=== PATIENT | male | born 1955 | race Caucasian/White ===

== ENCOUNTER → 2017-11-17 12:51 | Outpatient (REF) | payer OTHER, SELFPAY ==
[2017-11-17 20:24] LABS: ALT 21 U/L (12-78); AST 20 U/L (15-37); Alkaline Phosphatase 75 U/L (46-116); Anion Gap 9.9 mmol/L (3-11); BUN 18 mg/dL (7-18); Bilirubin, Total 0.5 mg/dL (0.2-1.0); CO2 29.1 mmol/L (21.0-32.0); CREATININE 0.76 mg/dL (0.70-1.30); Calcium 8.4 mg/dL (8.5-10.1); Chloride 104 mmol/L (98-107); Cholesterol 188 mg/dL (50-200); Glucose 88 mg/dL (70-100); HDL Cholesterol 66 mg/dL (40-60); LDL CHOLESTEROL 110 mg/dL (<100); Potassium 3.8 mmol/L (3.5-5.1); Sodium 143 mmol/L (136-145); Total Protein 6.4 g/dL (6.4-8.2); Triglyceride 121 mg/dL (30-150)
== END ==
LOC: NCHCN 12:51
PROVIDERS: PCP Internal Medicine; Visit Provider Internal Medicine
DX: I10 Essential (primary) hypertension (principal)
CPT/HCPCS: 80053; 80061; 83721

== ENCOUNTER 2020-10-06 16:46 | Outpatient (REF) | payer OTHER, SELFPAY ==
[2020-10-06 20:14] LABS: HCT 40.8 % (40.0-50.0); HGB 13.3 g/dL (13.5-17.5); MCH 32.5 pg (27.0-33.0); MCHC 32.6 % (32.0-36.0); MCV 99.8 fL (80-95); MPV 9.6 fL (8.0-11.0); Platelet Count 253 10^3/uL (130-400); RBC 4.09 10^6/uL (4.36-5.78); RDW-SD 47.6 fL; WBC 8.05 10^3/uL (4.4-10.8)
[2020-10-06 20:46] LABS: Hemoglobin A1C 5.7 % (<5.7)
[2020-10-06 20:50] LABS: Anion Gap 8.3 mmol/L (3-11); BUN 19 mg/dL (7-18); CO2 27.7 mmol/L (21.0-32.0); CREATININE 0.9 mg/dL (0.70-1.30); Calcium 8.4 mg/dL (8.5-10.1); Chloride 105 mmol/L (98-107); Glucose 154 mg/dL (74-106); Potassium 4.1 mmol/L (3.5-5.1); Sodium 141 mmol/L (136-145)
[2020-10-07 09:24] LABS: Albumin 3.8 g/dL (3.4-5.0)
[2020-10-07 09:27] LABS: Iron 74 ug/dL (65-175); Total Iron Binding Capacity 217 ug/dL (250-450); Transferrin Sat 34 % (20-55)
== END 2020-10-06 16:47 | disposition home or self-care (01) ==
LOC: NCHCN 16:46
PROVIDERS: PCP Internal Medicine; Visit Provider Internal Medicine
DX: Z01.818 Encounter for other preprocedural examination (principal); Z13.1 Encounter for screening for diabetes mellitus; I10 Essential (primary) hypertension; Z98.84 Bariatric surgery status
CPT/HCPCS: 80048; 85027; 82040; 83036; 83540; 83550

== ENCOUNTER 2021-10-05 17:10 | Outpatient (REF) | payer MEDICARE, SELFPAY ==
[2021-10-05 19:34] LABS: Abs Immature Grans 0.04 10^3/uL (0.0-0.06); Absolute Basophil Count 0.05 10^3/uL (0.0-0.2); Absolute Eosinophil Count 0.11 10^3/uL (0.0-0.7); Absolute Lymphocyte Count 1.58 10^3/uL (1.2-3.4); Absolute Neutrophil Count 5.34 10^3/uL (1.2-6.7); Basophils % 0.6; Eosinophils % 1.4; HGB 13.5 g/dL (13.5-17.5); Immature Grans % 0.5; Lymphocytes % 20.5; MCHC 33.8 % (32.0-36.0); MCV 98 fL (80-95); MPV 9.4 fL (8.0-11.0); Monocytes % 7.8; Neutrophils % 69.2; Platelet Count 240 10^3/uL (130-400); RBC 4.09 10^6/uL (4.36-5.78); RDW 13.3 % (11.8-14.1); RDW-SD 48.1 fL; WBC 7.72 10^3/uL (4.4-10.8)
[2021-10-05 19:39] LABS: Iron 68 ug/dL (65-175); Total Iron Binding Capacity 205 ug/dL (250-450); Transferrin Sat 33 % (20-55)
[2021-10-05 19:46] LABS: ALT 28 U/L (16-63); AST 26 U/L (15-37); Albumin 3.6 g/dL (3.4-5.0); Alkaline Phosphatase 75 U/L (46-116); Anion Gap 6.6 mmol/L (3-11); BUN 16 mg/dL (7-18); Bilirubin, Total 0.4 mg/dL (0.2-1.0); CO2 27.4 mmol/L (21.0-32.0); CREATININE 0.7 mg/dL (0.70-1.30); Calcium 8.2 mg/dL (8.5-10.1); Chloride 105 mmol/L (98-107); Glucose 106 mg/dL (74-106); Potassium 4.1 mmol/L (3.5-5.1); Sodium 139 mmol/L (136-145); Total Protein 5.6 g/dL (6.4-8.2)
[2021-10-05 19:51] LABS: Hemoglobin A1C 6.1 % (<5.7)
[2021-10-07 05:14] LABS: Vitamin D 25 Total 41.6 ng/mL (30-100)
== END 2021-10-05 17:11 | disposition home or self-care (01) ==
LOC: NCHCN 17:10
PROVIDERS: PCP Internal Medicine; Visit Provider Internal Medicine
DX: Z00.00 Encounter for general adult medical examination without abnormal findings (principal); Z13.1 Encounter for screening for diabetes mellitus; I10 Essential (primary) hypertension
CPT/HCPCS: 80053; 82306; 83036; 83540; 83550; 85025

== ENCOUNTER 2022-09-05 13:21 | Outpatient (REF) | payer MEDICARE, SELFPAY ==
[2022-09-05 16:32] LABS: ALT 31 U/L (16-63); AST 22 U/L (15-37); Albumin 3.6 g/dL (3.4-5.0); Alkaline Phosphatase 83 U/L (46-116); Anion Gap 5.5 mmol/L (3-11); BUN 20 mg/dL (7-18); Bilirubin, Total 0.6 mg/dL (0.2-1.0); CO2 30.5 mmol/L (21.0-32.0); CREATININE 0.7 mg/dL (0.70-1.30); Calcium 8.8 mg/dL (8.5-10.1); Calculated LDL 106 mg/dL (<100); Chloride 106 mmol/L (98-107); Cholesterol 186 mg/dL (<200); Estimated GFR 101.62 (mL/min/1.73m2); Glucose 128 mg/dL (74-106); HDL Cholesterol 73 mg/dL (40-60); Potassium 4.7 mmol/L (3.5-5.1); Sodium 142 mmol/L (136-145); Triglyceride 38 mg/dL (<150)
== END 2022-09-05 13:22 | disposition home or self-care (01) ==
LOC: NCHCN 13:21
PROVIDERS: PCP Internal Medicine; Visit Provider Internal Medicine
DX: E11.40 Type 2 diabetes mellitus with diabetic neuropathy, unspecified (principal); I87.2 Venous insufficiency (chronic) (peripheral); I10 Essential (primary) hypertension
CPT/HCPCS: 80053; 80061

== ENCOUNTER 2024-02-01 02:34 | Outpatient (RCR) | payer OTHER, MEDICARE, SELFPAY ==
[2024-01-10] MEDS: ERTAPENEM 1 GM in Normal Saline 50 ML IVPB (14:33)
[2024-01-10] MEDS: Normal Saline Flush 10 ML SYR IVP (14:34)
[2024-01-10 15:23] LABS: Absolute Basophil Count 0.07 10^3/uL (0.0-0.2); Absolute Lymphocyte Count 1.85 10^3/uL (1.2-3.4); Absolute Monocyte Count 0.65 10^3/uL (0.1-0.8); Absolute Neutrophil Count 6.44 10^3/uL (1.2-6.7); Basophils % 0.7 %; Eosinophils % 3.2 %; HCT 32.8 % (40.0-50.0); HGB 10.5 g/dL (13.5-17.5); Immature Grans % 1.1 %; Lymphocytes % 19.7 %; MCH 33.4 pg (27.0-33.0); MCV 105 fL (80-95); MPV 8.8 fL (8.0-11.0); Monocytes % 6.9 %; Neutrophils % 68.4 %; Platelet Count 411 10^3/uL (130-400); RBC 3.14 10^6/uL (4.36-5.78); RDW 13.8 % (11.8-14.1); RDW-SD 52.7 fL; WBC 9.41 10^3/uL (4.4-10.8)
[2024-01-10 15:40] LABS: ALT 19 U/L (16-63); AST 15 U/L (15-37); C-Reactive Protein 1.93 mg/dL (<or=0.5); CREATININE 0.7 mg/dL (0.70-1.30); Estimated GFR 100.37 (mL/min/1.73m2)
[2024-01-11] MEDS: Normal Saline Flush 10 ML SYR IVP (13:44)
[2024-01-11] MEDS: ERTAPENEM 1 GM in Normal Saline 50 ML IVPB (13:44)
[2024-01-12] MEDS: Normal Saline Flush 10 ML SYR IVP (13:51)
[2024-01-12] MEDS: ERTAPENEM 1 GM in Normal Saline 50 ML IVPB (13:51)
[2024-01-13] MEDS: ERTAPENEM 1 GM in Normal Saline 50 ML IVPB (14:06)
[2024-01-14] MEDS: ERTAPENEM 1 GM in Normal Saline 50 ML IVPB (14:03)
[2024-01-14] MEDS: Normal Saline Flush 10 ML SYR IVP (14:04)
[2024-01-15] MEDS: ERTAPENEM 1 GM in Normal Saline 50 ML IVPB (14:02)
[2024-01-15] MEDS: Normal Saline Flush 10 ML SYR IVP (14:03)
[2024-01-16] MEDS: ERTAPENEM 1 GM in Normal Saline 50 ML IVPB (13:43)
[2024-01-16] MEDS: Normal Saline Flush 10 ML SYR IVP (13:44)
[2024-01-17] MEDS: ERTAPENEM 1 GM in Normal Saline 50 ML IVPB (14:04)
[2024-01-17] MEDS: Normal Saline Flush 10 ML SYR IVP (14:05)
[2024-01-17 14:48] LABS: Abs Immature Grans 0.03 10^3/uL (0.0-0.06); Absolute Basophil Count 0.06 10^3/uL (0.0-0.2); Absolute Lymphocyte Count 1.52 10^3/uL (1.2-3.4); Absolute Monocyte Count 0.53 10^3/uL (0.1-0.8); Basophils % 0.7 %; Eosinophils % 3.6 %; HCT 32.3 % (40.0-50.0); HGB 10.3 g/dL (13.5-17.5); Immature Grans % 0.4 %; Lymphocytes % 18.4 %; MCH 33.2 pg (27.0-33.0); MCHC 31.9 % (32.0-36.0); MCV 104 fL (80-95); Monocytes % 6.4 %; Neutrophils % 70.5 %; Platelet Count 386 10^3/uL (130-400); RDW 13.8 % (11.8-14.1); RDW-SD 52.7 fL; WBC 8.24 10^3/uL (4.4-10.8)
[2024-01-17 15:10] LABS: ALT 20 U/L (16-63); AST 19 U/L (15-37); CREATININE 0.9 mg/dL (0.70-1.30); Estimated GFR 93.03 (mL/min/1.73m2)
[2024-01-18] MEDS: ERTAPENEM 1 GM in Normal Saline 50 ML IVPB (13:58)
[2024-01-18] MEDS: Normal Saline Flush 10 ML SYR IVP (13:59)
[2024-01-19] MEDS: ERTAPENEM 1 GM in Normal Saline 50 ML IVPB (14:06)
[2024-01-19] MEDS: Normal Saline Flush 10 ML SYR IVP (14:17)
[2024-01-20] MEDS: ERTAPENEM 1 GM in Normal Saline 50 ML IVPB (14:05)
[2024-01-20] MEDS: Normal Saline Flush 10 ML SYR IVP (14:06)
[2024-01-21] MEDS: Normal Saline Flush 10 ML SYR IVP (14:00)
[2024-01-21] MEDS: ERTAPENEM 1 GM in Normal Saline 50 ML IVPB (14:00)
[2024-01-22] MEDS: ERTAPENEM 1 GM in Normal Saline 50 ML IVPB (14:01)
[2024-01-22] MEDS: Normal Saline Flush 10 ML SYR IVP (14:02)
[2024-01-23] MEDS: Normal Saline Flush 10 ML SYR IVP (14:04)
[2024-01-23] MEDS: ERTAPENEM 1 GM in Normal Saline 50 ML IVPB (14:04)
[2024-01-24] MEDS: ERTAPENEM 1 GM in Normal Saline 50 ML IVPB (13:55)
[2024-01-24] MEDS: Normal Saline Flush 10 ML SYR IVP (13:55)
[2024-01-24 14:15] LABS: Abs Immature Grans 0.02 10^3/uL (0.0-0.06); Absolute Basophil Count 0.06 10^3/uL (0.0-0.2); Absolute Eosinophil Count 0.29 10^3/uL (0.0-0.7); Absolute Lymphocyte Count 2.21 10^3/uL (1.2-3.4); Absolute Monocyte Count 0.57 10^3/uL (0.1-0.8); Absolute Neutrophil Count 5.31 10^3/uL (1.2-6.7); Basophils % 0.7 %; Eosinophils % 3.4 %; HCT 37.3 % (40.0-50.0); HGB 11.9 g/dL (13.5-17.5); Immature Grans % 0.2 %; Lymphocytes % 26.1 %; MCH 33.1 pg (27.0-33.0); MCHC 31.9 % (32.0-36.0); MCV 104 fL (80-95); MPV 8.8 fL (8.0-11.0); Monocytes % 6.7 %; Neutrophils % 62.9 %; Platelet Count 348 10^3/uL (130-400); RBC 3.59 10^6/uL (4.36-5.78); RDW 13.6 % (11.8-14.1); WBC 8.46 10^3/uL (4.4-10.8)
[2024-01-24 14:29] LABS: ALT 22 U/L (16-63); AST 21 U/L (15-37); CREATININE 0.9 mg/dL (0.70-1.30); Estimated GFR 93.03 (mL/min/1.73m2)
[2024-01-24 14:31] LABS: C-Reactive Protein < 0.50 mg/dL (<or=0.5)
[2024-01-25] MEDS: ERTAPENEM 1 GM in Normal Saline 50 ML IVPB (14:00)
[2024-01-25] MEDS: Normal Saline Flush 10 ML SYR IVP (14:01)
[2024-01-26] MEDS: ERTAPENEM 1 GM in Normal Saline 50 ML IVPB (13:57)
[2024-01-26] MEDS: Normal Saline Flush 10 ML SYR IVP (13:58)
[2024-01-27] MEDS: ERTAPENEM 1 GM in Normal Saline 50 ML IVPB (13:59)
[2024-01-28] MEDS: ERTAPENEM 1 GM in Normal Saline 50 ML IVPB (14:25)
[2024-01-29] MEDS: ERTAPENEM 1 GM in Normal Saline 50 ML IVPB (13:01)
[2024-01-29] MEDS: Normal Saline Flush 10 ML SYR IVP (13:02)
[2024-01-30] MEDS: ERTAPENEM 1 GM in Normal Saline 50 ML IVPB (14:00)
[2024-01-30] MEDS: Normal Saline Flush 10 ML SYR IVP (14:00)
[2024-01-31] MEDS: Normal Saline Flush 10 ML SYR IVP (13:57)
[2024-01-31] MEDS: ERTAPENEM 1 GM in Normal Saline 50 ML IVPB (13:57)
[2024-01-31 14:33] LABS: Abs Immature Grans 0.02 10^3/uL (0.0-0.06); Absolute Basophil Count 0.05 10^3/uL (0.0-0.2); Absolute Eosinophil Count 0.28 10^3/uL (0.0-0.7); Absolute Lymphocyte Count 1.64 10^3/uL (1.2-3.4); Absolute Monocyte Count 0.45 10^3/uL (0.1-0.8); Absolute Neutrophil Count 5.53 10^3/uL (1.2-6.7); Basophils % 0.6 %; Eosinophils % 3.5 %; HCT 37.4 % (40.0-50.0); HGB 11.9 g/dL (13.5-17.5); Immature Grans % 0.3 %; Lymphocytes % 20.6 %; MCH 32.8 pg (27.0-33.0); MCHC 31.8 % (32.0-36.0); MCV 103 fL (80-95); MPV 9.3 fL (8.0-11.0); Monocytes % 5.6 %; Neutrophils % 69.4 %; Platelet Count 279 10^3/uL (130-400); RBC 3.63 10^6/uL (4.36-5.78); RDW 13.4 % (11.8-14.1); WBC 7.97 10^3/uL (4.4-10.8)
[2024-01-31 14:59] LABS: ALT 21 U/L (16-63); AST 19 U/L (15-37); CREATININE 0.9 mg/dL (0.70-1.30); Estimated GFR 93.03 (mL/min/1.73m2)
[2024-01-31 15:09] LABS: C-Reactive Protein < 0.50 mg/dL (<or=0.5)
[2024-02-01] MEDS: ERTAPENEM 1 GM in Normal Saline 50 ML IVPB (12:50)
[2024-02-01] MEDS: Normal Saline Flush 10 ML SYR IVP (12:50)
== END 2024-02-01 23:59 | disposition home or self-care (01) ==
LOC: INF 02:34
PROVIDERS: Student in an Organized Health Care Education/Training Program; PCP Family Medicine; Visit Provider Family Medicine
DX: T84.50XD Infection and inflammatory reaction due to unspecified internal joint prosthesis, subsequent encounter (principal); Z45.2 Encounter for adjustment and management of vascular access device
CPT/HCPCS: 36591; 36592; 96365; 82565; 84450; 84460; 85025; 86140; J1335

== ENCOUNTER 2024-02-15 01:35 | Outpatient (RCR) | payer OTHER, MEDICARE, SELFPAY ==
[2024-02-02] MEDS: ERTAPENEM 1 GM in Normal Saline 50 ML IVPB (14:23)
[2024-02-02] MEDS: Normal Saline Flush 10 ML SYR IVP (14:24)
[2024-02-03] MEDS: ERTAPENEM 1 GM in Normal Saline 50 ML IVPB (13:53)
[2024-02-03 13:54] VITALS: BP 114/65; PULSE 66; RESP 16; TEMP 36.7; O2SAT 97
[2024-02-03] MEDS: Normal Saline Flush 10 ML SYR IVP (13:54)
[2024-02-04] MEDS: ERTAPENEM 1 GM in Normal Saline 50 ML IVPB (13:59)
[2024-02-04] MEDS: Normal Saline Flush 10 ML SYR IVP (14:01)
[2024-02-05] MEDS: Normal Saline Flush 10 ML SYR IVP (14:14)
[2024-02-05] MEDS: ERTAPENEM 1 GM in Normal Saline 50 ML IVPB (14:14)
[2024-02-06] MEDS: ERTAPENEM 1 GM in Normal Saline 50 ML IVPB (14:07)
[2024-02-06] MEDS: Normal Saline Flush 10 ML SYR IVP (14:14)
[2024-02-07] MEDS: ERTAPENEM 1 GM in Normal Saline 50 ML IVPB (13:55)
[2024-02-07] MEDS: Normal Saline Flush 10 ML SYR IVP (13:59)
[2024-02-07 14:25] LABS: Abs Immature Grans 0.02 10^3/uL (0.0-0.06); Absolute Basophil Count 0.06 10^3/uL (0.0-0.2); Absolute Eosinophil Count 0.26 10^3/uL (0.0-0.7); Absolute Lymphocyte Count 1.77 10^3/uL (1.2-3.4); Absolute Monocyte Count 0.52 10^3/uL (0.1-0.8); Absolute Neutrophil Count 4.21 10^3/uL (1.2-6.7); Basophils % 0.9 %; Eosinophils % 3.8 %; HCT 38.8 % (40.0-50.0); HGB 12.6 g/dL (13.5-17.5); Immature Grans % 0.3 %; Lymphocytes % 25.9 %; MCH 33.4 pg (27.0-33.0); MCHC 32.5 % (32.0-36.0); MCV 103 fL (80-95); Monocytes % 7.6 %; Neutrophils % 61.5 %; Platelet Count 281 10^3/uL (130-400); RBC 3.77 10^6/uL (4.36-5.78); RDW 13.6 % (11.8-14.1); RDW-SD 51.9 fL; WBC 6.84 10^3/uL (4.4-10.8)
[2024-02-07 14:42] LABS: ALT 21 U/L (16-63); AST 17 U/L (15-37); C-Reactive Protein 0.73 mg/dL (<or=0.5); Estimated GFR 81.98 (mL/min/1.73m2)
[2024-02-08] MEDS: Normal Saline Flush 10 ML SYR IVP (13:54)
[2024-02-08] MEDS: ERTAPENEM 1 GM in Normal Saline 50 ML IVPB (13:54)
[2024-02-09] MEDS: ERTAPENEM 1 GM in Normal Saline 50 ML IVPB (13:56)
[2024-02-09] MEDS: Normal Saline Flush 10 ML SYR IVP (13:57)
[2024-02-10] MEDS: ERTAPENEM 1 GM in Normal Saline 50 ML IVPB (13:28)
[2024-02-11] MEDS: ERTAPENEM 1 GM in Normal Saline 50 ML IVPB (14:13)
[2024-02-12] MEDS: ERTAPENEM 1 GM in Normal Saline 50 ML IVPB (13:37)
[2024-02-12] MEDS: Normal Saline Flush 10 ML SYR IVP (13:37)
[2024-02-13] MEDS: ERTAPENEM 1 GM in Normal Saline 50 ML IVPB (13:58)
[2024-02-13] MEDS: Normal Saline Flush 10 ML SYR IVP (13:59)
[2024-02-14] MEDS: ERTAPENEM 1 GM in Normal Saline 50 ML IVPB (13:58)
[2024-02-14] MEDS: Normal Saline Flush 10 ML SYR IVP (13:59)
[2024-02-14 14:29] LABS: Abs Immature Grans 0.02 10^3/uL (0.0-0.06); Absolute Basophil Count 0.06 10^3/uL (0.0-0.2); Absolute Eosinophil Count 0.24 10^3/uL (0.0-0.7); Absolute Lymphocyte Count 1.81 10^3/uL (1.2-3.4); Absolute Monocyte Count 0.47 10^3/uL (0.1-0.8); Eosinophils % 3.8 %; HCT 37.3 % (40.0-50.0); HGB 12.2 g/dL (13.5-17.5); Immature Grans % 0.3 %; Lymphocytes % 28.7 %; MCH 33.9 pg (27.0-33.0); MCHC 32.7 % (32.0-36.0); MCV 104 fL (80-95); MPV 9.1 fL (8.0-11.0); Monocytes % 7.5 %; Neutrophils % 58.7 %; Platelet Count 255 10^3/uL (130-400); RDW 13.3 % (11.8-14.1); RDW-SD 51.4 fL
[2024-02-14 14:40] LABS: ALT 22 U/L (16-63); AST 18 U/L (15-37); C-Reactive Protein 0.68 mg/dL (<or=0.5); CREATININE 0.9 mg/dL (0.70-1.30); Estimated GFR 93.03 (mL/min/1.73m2)
[2024-02-15] MEDS: ERTAPENEM 1 GM in Normal Saline 50 ML IVPB (13:49)
[2024-02-15] MEDS: Bacitracin 1 PACKET (14:25)
[2024-02-15] MEDS: Normal Saline Flush 10 ML SYR IVP (14:29)
== END 2024-03-02 23:59 | disposition home or self-care (01) ==
LOC: INF 01:35
PROVIDERS: Student in an Organized Health Care Education/Training Program; PCP Family Medicine; Visit Provider Family Medicine
DX: T84.51XD Infection and inflammatory reaction due to internal right hip prosthesis, subsequent encounter (principal)
CPT/HCPCS: 36592; 96365; 82565; 84450; 84460; 85025; 86140; J1335

== ENCOUNTER 2024-02-19 20:12 | Outpatient (REF) | payer OTHER, SELFPAY ==
[2024-02-19 17:13] LABS: Creatine Kinase 49 U/L (39-308)
== END 2024-02-19 20:13 | disposition home or self-care (01) ==
LOC: NCHCN 20:12
PROVIDERS: PCP Family Medicine; Visit Provider Family Medicine
DX: M79.18 Myalgia, other site (principal)
CPT/HCPCS: 82550

== ENCOUNTER 2024-03-18 09:02 | Outpatient (REF) | payer OTHER, MEDICARE, SELFPAY ==
[2024-03-18 15:02] LABS: Abs Immature Grans 0.01 10^3/uL (0.0-0.06); Absolute Basophil Count 0.06 10^3/uL (0.0-0.2); Absolute Eosinophil Count 0.16 10^3/uL (0.0-0.7); Absolute Lymphocyte Count 2.01 10^3/uL (1.2-3.4); Absolute Monocyte Count 0.58 10^3/uL (0.1-0.8); Absolute Neutrophil Count 3.67 10^3/uL (1.2-6.7); Basophils % 0.9 %; Eosinophils % 2.5 %; HCT 43.9 % (40.0-50.0); HGB 14.5 g/dL (13.5-17.5); Immature Grans % 0.2 %; MCH 33.6 pg (27.0-33.0); MCV 102 fL (80-95); Monocytes % 8.9 %; Neutrophils % 56.5 %; RBC 4.32 10^6/uL (4.36-5.78); RDW 13.2 % (11.8-14.1); RDW-SD 50.5 fL; WBC 6.49 10^3/uL (4.4-10.8)
[2024-03-19 18:05] LABS: CRP, High Sensitivity 5.92 mg/L (See Note)
== END 2024-03-18 09:03 | disposition home or self-care (01) ==
LOC: NCHCN 09:02
PROVIDERS: PCP Family Medicine; Visit Provider Family Medicine
DX: Z22.322 Carrier or suspected carrier of Methicillin resistant Staphylococcus aureus (principal)
CPT/HCPCS: 82550; 82552; 86141; 85025

== ENCOUNTER 2024-05-30 13:15 | Outpatient (CLI) | payer OTHER, SELFPAY ==
[2024-05-30 11:48] LABS: HCT 44.7 % (40.0-50.0); HGB 14.7 g/dL (13.5-17.5); MCH 33.2 pg (27.0-33.0); MCHC 32.9 % (32.0-36.0); MCV 101 fL (80-95); MPV 9.1 fL (8.0-11.0); Platelet Count 261 10^3/uL (130-400); RBC 4.43 10^6/uL (4.36-5.78); RDW 13.2 % (11.8-14.1); RDW-SD 49.8 fL; WBC 6.46 10^3/uL (4.4-10.8)
[2024-05-30 12:22] LABS: ALT 23 U/L (16-63); AST 17 U/L (15-37); Albumin 3.8 g/dL (3.4-5.0); Alkaline Phosphatase 124 U/L (46-116); Anion Gap 9.2 mmol/L (3-11); BUN 24 mg/dL (7-18); CO2 27.8 mmol/L (21.0-32.0); Calcium 8.5 mg/dL (8.5-10.1); Chloride 104 mmol/L (98-107); Estimated GFR 81.98 (mL/min/1.73m2); Glucose 289 mg/dL (74-106); Potassium 4.5 mmol/L (3.5-5.1); Sodium 141 mmol/L (136-145); Total Protein 6.8 g/dL (6.4-8.2)
[2024-05-30 12:32] LABS: C-Reactive Protein < 0.50 mg/dL (<or=0.5)
[2024-05-30 12:38] LABS: ESR 2 mm/hr (0-20)
== END 2024-05-30 13:16 | disposition home or self-care (01) ==
LOC: LBO 13:17
PROVIDERS: PCP Family Medicine; Visit Provider Family Medicine
DX: Z22.322 Carrier or suspected carrier of Methicillin resistant Staphylococcus aureus (principal)
CPT/HCPCS: 36415; 80053; 85027; 85652; 86140

== ENCOUNTER 2024-10-15 16:50 | Outpatient (REF) | payer MEDICARE, SELFPAY ==
[2024-10-15 16:23] LABS: HCT 41.1 % (40.0-50.0); HGB 13.6 g/dL (13.5-17.5); MCH 34.0 pg (27.0-33.0); MCHC 33.1 % (32.0-36.0); MCV 103 fL (80-95); MPV 9.3 fL (8.0-11.0); Platelet Count 245 10^3/uL (130-400); RBC 4.00 10^6/uL (4.36-5.78); RDW 14.2 % (11.8-14.1); RDW-SD 54.1 fL; WBC 5.69 10^3/uL (4.4-10.8)
[2024-10-15 16:52] LABS: ALT 25 U/L (16-63); AST 21 U/L (15-37); Albumin 3.8 g/dL (3.4-5.0); Alkaline Phosphatase 89 U/L (46-116); Anion Gap 7.9 mmol/L (3-11); BUN 19 mg/dL (7-18); Bilirubin, Total 0.5 mg/dL (0.2-1.0); CO2 28.1 mmol/L (21.0-32.0); Calcium 8.8 mg/dL (8.5-10.1); Chloride 104 mmol/L (98-107); Estimated GFR 99.74 (mL/min/1.73m2); Glucose 132 mg/dL (74-106); Potassium 4.8 mmol/L (3.5-5.1); Sodium 140 mmol/L (136-145); Total Protein 6.3 g/dL (6.4-8.2)
== END 2024-10-15 16:51 | disposition home or self-care (01) ==
LOC: NCHCN 16:50
PROVIDERS: PCP Family Medicine; Visit Provider Family Medicine
DX: Z01.818 Encounter for other preprocedural examination (principal)
CPT/HCPCS: 80053; 85027

== ENCOUNTER 2025-02-07 12:53 | Inpatient (IN) | payer MEDICARE, SELFPAY ==
[2025-02-07] VITALS (7 sets, daily range): BP systolic 120–147; BP diastolic 62–92; PULSE 54–90; RESP 14–22; TEMP 36.7; O2SAT 94–98
--- NOTE | 2025-02-07 13:15 | DI.CT_ITS ---
Exam(s) CT HEAD WO EXAM: CT HEAD WO CLINICAL HISTORY: fall, [place]. TECHNIQUE: Imaging Protocol: Axial computed tomography images with coronal and sagittal reformatted images were created and reviewed COMPARISON: No exams were available for comparison FINDINGS: Ventricles and Extra axial spaces: Normal in size and morphology for the patient's age. Hemorrhage: None. Cerebral parenchyma: There is a normal bolivar-white matter differentiation. There is no evidence of an acute territorial infarct. Midline shift: None. Brainstem/Cerebellum: Normal. Calvarium: Normal. Visualized Paranasal sinuses/Mastoids: Clear. Soft Tissues: Unremarkable. IMPRESSION: No acute intracranial process. RADIATION DOSE DELIVERED: 915.05mGy.cm Total DLP DATA REPOSITORY: All CT scans at this facility are submitted to the National Radiology Data Registry (NRDR) Dose Index Registry (DIR) with the [employer] (ACR). RADIATION OPTIMIZATION: All CT scans at this facility use at least one of these dose optimization techniques: automated exposure control; mA and/or kV adjustment per patient size (includes targeted exams where dose is matched to clinical indication); or iterative reconstruction.
--- NOTE | 2025-02-07 13:15 | DI.RAD_ITS ---
Exam(s) XR KNEE RT 3V AP,LAT,MIRIAN XR TIB/FIB RT EXAM: XR KNEE RT 3V AP,LAT,MIRIAN and XR tib/fib RT CLINICAL HISTORY: knee pain post fall. TECHNIQUE: 2D digital imaging was performed of the right tibia/fibula and knee. Six views obtained. AP, lateral and PA tunnel views were obtained. COMPARISON: CR RIGHT FEMUR from 08/06/2012 CR LEFT HIP COMPLETE from 01/23/2014 CR BILATERAL HIPS ADULT from 09/30/2015 FINDINGS: BONES: No acute fracture is present. No bony destructive lesion is seen. There is an enthesophyte at the superior patella. JOINTS: The knee is normally aligned. No joint effusion is seen. SOFT TISSUE: Normal. IMPRESSION: There is no acute fracture or dislocation in the right knee or right leg. DATA REPOSITORY: RADIATION DOSE DELIVERED:
--- NOTE | 2025-02-07 13:15 | DI.CT_ITS ---
Exam(s) CT ABDOMEN PELVIS W EXAM: CT ABDOMEN PELVIS W CLINICAL HISTORY: abdominal and back pain. TECHNIQUE: Imaging Protocol: Axial computed tomography images with coronal and sagittal reformatted images were created and reviewed CONTRAST MATERIAL: Intravenous: Omnipaque-350 100cc Oral: None COMPARISON: CT CT LUMBAR SPINE RECONS from 02/07/2025 FINDINGS: VISUALIZED LUNG BASES: Mild increased markings in the right lung base posterior basal segment. No confluent infiltrates in the lung bases x and there are no pleural effusions. ABDOMEN: There is no ascites. GI: There is evidence of prior bariatric surgery and cholecystectomy. As there was no oral contrast administered it is not possible to determine if there is abnormal fistulous communication to the [place] vie[place] excluded stomach (which is not dilated). The pre colic Kayli limb is not dilated and there is no evidence of obvious abnormality at the enteroenterostomy nor more evidence of obvious more distal small bowel obstruction. There is no free air. No evidence of abscess. LIVER: There is mild prominence of intrahepatic ducts in the left lobe and aero bili a within these ducts. There are no focal hepatic lesions evident. GALLBLADDER/BILIARY: Gallbladder is surgically absent. CBD diameter is normal. PANCREAS: No evidence of pancreatic mass nor dilatation of the pancreatic duct. SPLEEN: Spleen is not enlarged. No obvious intrasplenic lesions. Splenic and portal veins are patent. ADRENALS: There are no significant adrenal masses. KIDNEYS:There is a small sub cm cyst in left kidney. No solid renal masses. No calculi. No hydronephrosis nor hydroureter.. ABDOMINAL AORTA: Abdominal aorta is not enlarged. LYMPH NODES:There are few slightly prominent Zita aortic lymph nodes. No large mesenteric masses. ABDOMINAL WALL: Small fat only containing umbilical hernia. No inguinal hernias evident. No port site hernias and no abnormal subcutaneous fluid collections. PELVIS: GI: Appendix is not seen and may be surgically absent.Sigmoid is redundant but no evidence of significant sigmoid diverticular disease nor diverticulosis elsewhere in the colon LYMPH NODES: There is no intrapelvic nor inguinal adenopathy. REPRODUCTIVE: Prostate size normal. URINARY BLADDER: No obvious findings although somewhat obscured by beam hardening artifact from bilateral hip prostheses. OSSEOUS: Bilateral hip prostheses. No fractures. Multilevel chronic degenerative disc disease in the lumbar spine. No listhesis. No significant osseous lesions evident. IMPRESSION: 1. There is evidence of prior bariatric surgery and cholecystectomy. There is no evidence of obvious bowel obstruction, free air, nor abscess. No ascites. 2. There is some air seen within intrahepatic ducts in this patient has had prior cholecystectomy. Correlation with any prior history of ERCP or other biliary instrumentation is recommended. The CBD is not dilated. 3. There are few slightly prominent para-aortic lymph nodes, these measuring less than 1 cm. 4. Bilateral hip prostheses noted. Report called by myself to ER provider 02/07/2025 at 3:20 p.m. RADIATION DOSE DELIVERED: 1,582.23mGy.cm Total DLP DATA REPOSITORY: All CT scans at this facility are submitted to the National Radiology Data Registry (NRDR) Dose Index Registry (DIR) with the [employer] (ACR). RADIATION OPTIMIZATION: All CT scans at this facility use at least one of these dose optimization techniques: automated exposure control; mA and/or kV adjustment per patient size (includes targeted exams where dose is matched to clinical indication); or iterative reconstruction.
--- NOTE | 2025-02-07 13:29 | DI.CT_ITS ---
Exam(s) CT LUMBAR SPINE RECONS EXAM: CT LUMBAR SPINE RECONS CLINICAL HISTORY: back pain. TECHNIQUE: Imaging Protocol: Axial computed tomography images with coronal and sagittal reformatted images were created and reviewed COMPARISON: CT CT ABDOMEN PELVIS W from 02/07/2025 FINDINGS: Bones: There is multilevel chronic degenerative disc disease and there is partial fusion of the L3, L4, and L5 vertebral bodies. There are also multilevel bridging syndesmophytes but no evidence of ankylosis of the sacroiliac joints.On the right side of L2-3 level there is lucency through the mid aspect of the lateral right syndesmophyte which may be significant such as fracture. The left syndesmophyte at this level appears intact. There is mild height loss of L1 vertebral body which may be a subtle compression fracture, age indeterminate. There are no distinct fracture lines evident in this vertebral body. No evidence of listhesis. There is no evidence of facet joint malalignment. L5-S1: Chronic disc space narrowing. Central posterior disc protrusion which extends posteriorly 6 mm and is 2 cm wide. This mildly compresses the thecal sac at this level. There is also bilateral vertical foraminal stenosis at this level related to advanced disc height loss. PARASPINAL SOFT TISSUES: Visualized paraspinal tissues appear unremarkable. Visualized sacrum appears intact with no evidence of sacral fracture and the sacroiliac joints appear age-appropriate. No ankylosis. There is partial sacralization of the L5 segment. IMPRESSION: 1. Chronic multilevel degenerative disc disease and partial multilevel vertebral fusions. 2. Mild height loss of L1 vertebral body; less than 10 percent height loss, age indeterminate.) 3. There is a possible fracture line through a right sided syndesmosis at the L2-3 level, this of questionable significance. 4. There is multilevel chronic degenerative disc disease. Most prominent narrowing is at L5-S1 level where there is also a central disc protrusion as described above which indents the anterior thecal sac. Central canal dimensions at this level are lower normal but there is significant bilateral vertical foraminal stenosis at this level. 5. There is mild central canal stenosis at L2-3 level evident. 6. If pain persists then would recommend MRI for added sensitivity and specificity. Report called by myself to ER provider 02/07/2025 at 3:44 p.m. RADIATION DOSE DELIVERED: 1,582.23mGy.cm Total DLP DATA REPOSITORY: All CT scans at this facility are submitted to the National Radiology Data Registry (NRDR) Dose Index Registry (DIR) with the [employer] (ACR). RADIATION OPTIMIZATION: All CT scans at this facility use at least one of these dose optimization techniques: automated exposure control; mA and/or kV adjustment per patient size (includes targeted exams where dose is matched to clinical indication); or iterative reconstruction.
[2025-02-07 13:41] LABS: Abs Immature Grans 0.08 10^3/uL (0.0-0.06); HCT 46.3 % (40.0-50.0); HGB 15.2 g/dL (13.5-17.5); Immature Grans % 1.0 %; MCH 33.4 pg (27.0-33.0); MCHC 32.8 % (32.0-36.0); MCV 102 fL (80-95); MPV 9.0 fL (8.0-11.0); Platelet Count 263 10^3/uL (130-400); RBC 4.55 10^6/uL (4.36-5.78); RDW 12.9 % (11.8-14.1); RDW-SD 48.9 fL; WBC 8.21 10^3/uL (4.4-10.8)
[2025-02-07] MEDS: ACETAMINOPHEN 500 MG/50 ML BAG 200 MG IVPB (13:41)
[2025-02-07] MEDS: MORPHine 10 MG/ML VIAL 2 MG IVP ×5 (13:41→21:40)
[2025-02-07] MEDS: MORPHine 4 MG/ML SYR IVP ×2 (14:01→15:41)
[2025-02-07 14:11] LABS: ALT 35 U/L (16-63); AST 38 U/L (15-37); Albumin 4.2 g/dL (3.4-5.0); Alkaline Phosphatase 119 U/L (46-116); Anion Gap 8.9 mmol/L (3-11); BUN 17 mg/dL (7-18); Bilirubin, Total 0.5 mg/dL (0.2-1.0); CO2 28.1 mmol/L (21.0-32.0); Calcium 8.6 mg/dL (8.5-10.1); Chloride 103 mmol/L (98-107); Glucose 128 mg/dL (74-106); Lipase 35 U/L (<78); Potassium 3.8 mmol/L (3.5-5.1); Sodium 140 mmol/L (136-145); Total Protein 7.6 g/dL (6.4-8.2)
[2025-02-07] MEDS: Omnipaque 350 MG/ML 500 ML BTL-Imaging package IJ (14:37)
[2025-02-07] MEDS: Normal Saline - Diluent 50 ML VIAL IJ (14:38)
[2025-02-07] MEDS: Normal Saline Flush 10 ML SYR IVP (14:40)
--- NOTE | 2025-02-07 15:44 | W.ED.GENAD ---
Discharge Plan Discharge Details Chief Complaint: Fall/Non TraumaCriteria Primary Care Provider: Jennifer Newman ED Provider: Carol Costello Home Meds and New Rx's Prescriptions: No Action cyclobenzaprine 10 mg tablet 10 mg PO HS ferrous gluconate 256 mg (28 mg iron) tablet 256 mg PO DAILY gabapentin 800 mg tablet 1,600 mg PO TID Patient Comments: Pt states he takes 1600 mg three times daily - Ellie Sanford RN 02/07/25 omeprazole 40 mg capsule,delayed release(DR/EC) 40 mg PO DAILY senna 8.6 mg capsule 17.2 mg PO BID tadalafil 10 mg tablet 10 mg PO DAILY PRN Rx Instructions: administer approximately 30min before sexual activity; do not use more than 1 dose per 24hrs tramadol 50 mg tablet 50 mg PO Q6H PRN ascorbic acid (vitamin C) 1,000 mg tablet 2 g PO TID cholecalciferol (vitamin D3) 10 mcg (400 unit) capsule 10 mcg PO DAILY ibuprofen 800 MG tablet 800 mg PO Q8H PRNQty: 20 0RF oxycodone 5 MG/5 ML solution 5 mg PO Q4H PRNQty: 100 0RF oxycodone 5 MG tablet 1 tab PO ONCE PRN ramelteon 8 mg tablet 8 mg PO QHS HPI General Date/Time Provider Initiated Documentation: 02/07/25 13:11. HPI Narrative: 69-year-old male with history of peripheral neuropathy bariatric surgery hypertension hypercholesterolemia presents after a mechanical fall. He states his right knee gave out and he fell into the pool and initially had some ringing to his right ear, he denies any loss of consciousness complaining of some abdominal pain, back pain, knee and díaz pain. He was unable to ambulate after the event occurred. Denies any strength or sensation change Related Data Home Medications Medication Instructions Recorded Confirmed ibuprofen 800 mg tablet 800 mg PO Q8H PRN #20 tabs 08/06/12 02/07/25 oxycodone 5 mg/5 mL oral solution 5 mg (5 mL) PO Q4H PRN #100 mL 08/06/12 02/07/25 oxycodone 5 mg tablet 1 tab PO ONCE PRN 11/02/15 02/07/25 ascorbic acid (vitamin C) 1,000 mg 2 g PO TID 01/24/24 02/07/25 tablet cholecalciferol (vitamin D3) 10 10 mcg PO DAILY 01/24/24 02/07/25 mcg (400 unit) capsule cyclobenzaprine 10 mg tablet 10 mg PO HS 01/24/24 02/07/25 ferrous gluconate 256 mg (28 mg 256 mg PO DAILY 01/24/24 02/07/25 iron) tablet gabapentin 800 mg tablet 1,600 mg PO TID 01/24/24 02/07/25 omeprazole 40 mg capsule,delayed 40 mg PO DAILY 01/24/24 02/07/25 release sennosides 8.6 mg capsule (senna) 17.2 mg PO BID 01/24/24 02/07/25 tadalafil 10 mg tablet 10 mg PO DAILY PRN 01/24/24 02/07/25 tramadol 50 mg tablet 50 mg PO Q6H PRN 01/24/24 02/07/25 ramelteon 8 mg tablet 8 mg PO QHS 02/07/25 02/07/25 Previous Rx's Medication Instructions Recorded ibuprofen 800 mg tablet 800 mg PO Q8H PRN #20 tabs 08/06/12 oxycodone 5 mg/5 mL oral solution 5 mg (5 mL) PO Q4H PRN #100 mL 08/06/12 Allergies Allergy/AdvReac Type Severity Reaction Status Date / Time Penicillins Allergy Unknown Unverified 02/07/25 13:33 beta blockers Allergy Unknown Uncoded 02/07/25 13:33 raw cheese Allergy Unknown Uncoded 02/07/25 13:33 General Stated Complaint: Fall/Non TraumaCriteria JORGE: 3 Exam Narrative Exam Narrative: Alert and oriented 69-year-old male no acute discomforts, neurovascularly intact, no abdominal tenderness no rebound or guarding, lumbar spine tenderness, strength and sensation intact distally, laceration noted to right tib-fib with tenderness and swelling, likely hematoma, tenderness to right knee no cervical spine tenderness GCS 15 pupils equal round reactive to light and accommodation following all basic commands Course Vital Signs Vital signs: Vital Signs Temperature 36.7 C 02/07/25 12:55 Pulse 54 L 02/07/25 12:55 Respiratory Rate 16 02/07/25 12:55 Blood Pressure 131/85 02/07/25 12:55 Pulse Oximetry 98 02/07/25 12:55 Temperature 36.7 C 02/07/25 12:55 Temperature Source Temporal Artery Scan 02/07/25 12:55 Pulse 77 02/07/25 15:02 Respiratory Rate 16 02/07/25 15:02 Respiratory Effort Normal, Non-Labored 02/07/25 14:14 Respiratory Depth Normal 02/07/25 14:14 Respiratory Pattern Normal 02/07/25 14:14 Blood Pressure 147/92 H 02/07/25 15:02 Blood Pressure Mean 110 02/07/25 15:02 Blood Pressure Position Supine 02/07/25 12:55 Pulse Oximetry 97 02/07/25 15:02 Oxygen Delivery Method Room Air 02/07/25 15:02 Oxygen Flow Rate 0 02/07/25 15:02 Pain Level 9 02/07/25 14:01 Lab/Test Results Lab/Test Results: Laboratory Tests Range/Units 02/07/25 02/07/25 13:28 13:48 WBC (4.4-10.8) 10^3/uL 8.21 RBC (4.36-5.78) 10^6/uL 4.55 Hgb (13.5-17.5) g/dL 15.2 Hct (40.0-50.0) % 46.3 MCV (80-95) fL 102 H MCH (27.0-33.0) pg 33.4 H MCHC (32.0-36.0) % 32.8 RDW (11.8-14.1) % 12.9 Plt Count (130-400) 10^3/uL 263 MPV (8.0-11.0) fL 9.0 Immature Gran % % 1.0 Neutrophils % % 78.0 Lymphocytes % % 13.0 Monocytes % % 6.1 Eosinophils % % 1.5 Basophils % % 0.4 Nucleated RBC % (0.0-0.3) % 0.0 Absolute Neutrophils (1.2-6.7) 10^3/uL 6.41 Absolute Lymphocytes (1.2-3.4) 10^3/uL 1.07 L Absolute Monocytes (0.1-0.8) 10^3/uL 0.50 Absolute Eosinophils (0.0-0.7) 10^3/uL 0.12 Absolute Basophils (0.0-0.2) 10^3/uL 0.03 Sodium (136-145) mmol/L 140 Potassium (3.5-5.1) mmol/L 3.8 Chloride (98-107) mmol/L 103 Carbon Dioxide (21.0-32.0) mmol/L 28.1 Anion Gap (3-11) mmol/L 8.9 BUN (7-18) mg/dL 17 Creatinine (0.70-1.30) mg/dL 0.7 Est GFR (CKD-EPI 2020) (mL/min/1.73m2) 99.74 Glucose (74-106) mg/dL 128 H Calcium (8.5-10.1) mg/dL 8.6 Total Bilirubin (0.2-1.0) mg/dL 0.5 AST (15-37) U/L 38 H ALT (16-63) U/L 35 Alkaline Phosphatase (46-116) U/L 119 H Total Protein (6.4-8.2) g/dL 7.6 Albumin (3.4-5.0) g/dL 4.2 Lipase (<78) U/L 35 ABO/Rh AB Negative Antibody Screen NEGATIVE Medical Decision Making Results: CBC, CMP, do not show evidence of significant acute abnormality CT head abdomen and pelvis and right lower extremity x-rays do not show evidence of acute abnormality, patient is a possible fracture through L2-L3 syndesmosis, this was discussed with radiologist, Dr. Spicer Assessment and plan: Patient had mechanical fall complaining of head, back, and leg pain. CT head does not show acute abnormality, patient states tetanus immunization is up-to-date. He does have a possible fracture through L2-L3 syndesmosis. We will call neurosurgery regarding this finding. Patient has required multiple doses of pain medication throughout this visit. Prior to discharge home he will need an ambulatory trial as he has been in quite a bit of pain did receive some IV Tylenol initially upon arrival. At this time he is pending neurosurgery consultation regarding possible fracture through L2-L3 and if cleared, ambulatory trial for possible discharge home.. 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 (Acute) Hypertension (Chronic) Erectile dysfunction (Acute) Obesity (Chronic) Hypercholesterolemia (Acute) Medical History (Updated 01/24/24 @ 10:29 by Helen Kapoor RN) History of fracture of right hip History of pancreatitis Surgical History (Updated 01/24/24 @ 10:29 by Helen Kapoor RN) History of arthroplasty of finger of left hand History of vasectomy History of carpal tunnel release Hx of cholecystectomy History of bariatric surgery Social History Smoking/Tobacco Use Status: Never Smoking risk assessment performed?: Yes Alcohol Intake: current Alcohol Intake frequency: holidays/special occasions only Drug use: Never Substance use type: does not use Do you feel safe at home: Yes Do you feel safe in your relationship?: Yes
--- NOTE | 2025-02-07 22:37 | W.PM.HP.N ---
Date of service: 02/07/25 Time of Service: 22:38 Assessment and Plan Assessment and plan (1) Acute back pain: Status: Acute Assessment and plan: Reviewing the notes from the ED the recommendation from trauma neurosurgery at [facility] is to get MRI thoracic and lumbar spine without contrast. If the MRI is within normal limits check a x-ray for flexion and extension. After these images are done to reconsult neurosurgery. The patient is not narcotic naïve so I will give him Dilaudid for pain control. Dorsal softeners as needed. I have placed the orders for the MRIs. (2) Type 2 diabetes mellitus: Status: Acute Assessment and plan: Patient is controlled with diet and exercise is not on any oral or subcu diabetic medication (3) Hypercholesterolemia: Status: Acute Assessment and plan: Continue with home meds (4) Hypertension: Status: Chronic Assessment and plan: Patient blood pressure is within normal limits. Monitor. (5) Elevated MCV: Status: Acute Assessment and plan: Consider outpatient workup at the discretion of the PCP. Of note he is on iron so I would recommend checking a B12. History of Present Illness History of Present Illness Chief Complaint: back pain Narrative: This is a 69-year-old gentleman who has a known history of bilateral hip prosthesis, bariatric surgery, left shoulder replacement, iron deficiency who presents after sustaining a fall at home. Patient states he was trying to grape picker a toolbox lost his balance and fell to the ground. While he was in the ED he had multiple images done including a lumbar spine CT tib-fib x-ray and knee x-ray and a head CT as well as an abdominal pelvic CT. Main findings was on the lumbar spine CT which showed possible fracture through a right sided syndrome Mozes at the L2-L3 level of questionable significance. Our ED provider reached out to both neurosurgery as well as trauma surgery at [facility] who did not recommend transfer but rather repeat images but at this time with an MRI of the thoracic lumbar spine. On my discussion with the patient he denies any bowel or bladder incontinence. He states he does has sensation in his lower extremities bilaterally. He is a full code. 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 (Acute) Hypertension (Chronic) Erectile dysfunction (Acute) Obesity (Chronic) Hypercholesterolemia (Acute) Medical History (Updated 02/07/25 @ 22:45 by Bryan Lamb MD) History of fracture of right hip History of pancreatitis Surgical History (Updated 01/24/24 @ 10:29 by Helen Kapoor RN) History of arthroplasty of finger of left hand History of vasectomy History of carpal tunnel release Hx of cholecystectomy History of bariatric surgery Social History Smoking/Tobacco Use Status: Never Smoking risk assessment performed?: Yes Alcohol Intake: current Alcohol Intake frequency: holidays/special occasions only Drug use: Never Substance use type: does not use Do you feel safe at home: Yes Do you feel safe in your relationship?: Yes Meds Allergies and Home Medications Allergies Allergy/AdvReac Type Severity Reaction Status Date / Time Penicillins Allergy Unknown Unverified 02/07/25 13:33 beta blockers Allergy Unknown Uncoded 02/07/25 13:33 raw cheese Allergy Unknown Uncoded 02/07/25 13:33 Home Medications Medication Instructions Recorded Confirmed Type ibuprofen 800 mg tablet 800 mg PO Q8H PRN #20 tabs 08/06/12 02/07/25 Rx oxycodone 5 mg/5 mL oral solution 5 mg (5 mL) PO Q4H PRN #100 mL 08/06/12 02/07/25 Rx oxycodone 5 mg tablet 1 tab PO ONCE PRN 11/02/15 02/07/25 History ascorbic acid (vitamin C) 1,000 mg 2 g PO TID 01/24/24 02/07/25 History tablet cholecalciferol (vitamin D3) 10 10 mcg PO DAILY 01/24/24 02/07/25 History mcg (400 unit) capsule cyclobenzaprine 10 mg tablet 10 mg PO HS 01/24/24 02/07/25 History ferrous gluconate 256 mg (28 mg 256 mg PO DAILY 01/24/24 02/07/25 History iron) tablet gabapentin 800 mg tablet 1,600 mg PO TID 01/24/24 02/07/25 History omeprazole 40 mg capsule,delayed 40 mg PO DAILY 01/24/24 02/07/25 History release sennosides 8.6 mg capsule (senna) 17.2 mg PO BID 01/24/24 02/07/25 History tadalafil 10 mg tablet 10 mg PO DAILY PRN 01/24/24 02/07/25 History tramadol 50 mg tablet 50 mg PO Q6H PRN 01/24/24 02/07/25 History ramelteon 8 mg tablet 8 mg PO QHS 02/07/25 02/07/25 History Exam Narrative Exam Narrative: HEENT normocephalic atraumatic mucous membranes moist oropharynx clear Neck no lymphadenopathy no JVD no thyromegaly Cardiovascular regular rate and rhythm no murmurs gallops Lungs clear to auscultation with early no accessory muscle use Abdomen protuberant Extremities no sinus clubbing or edema Neurologic nonfocal exam patient does have intact sensation in the lower extremities does have dorsi and plantarflexion in his ankles Results Labs 02/07/25 13:28 02/07/25 13:28 Labs: Laboratory Results - last 24 hr 02/07/25 02/07/25 13:28 13:48 WBC 8.21 RBC 4.55 Hgb 15.2 Hct 46.3 MCV 102 H MCH 33.4 H MCHC 32.8 RDW 12.9 Plt Count 263 MPV 9.0 Immature Gran % 1.0 Neutrophils % 78.0 Lymphocytes % 13.0 Monocytes % 6.1 Eosinophils % 1.5 Basophils % 0.4 Nucleated RBC % 0.0 Absolute Neutrophils 6.41 Absolute Lymphocytes 1.07 L Absolute Monocytes 0.50 Absolute Eosinophils 0.12 Absolute Basophils 0.03 Sodium 140 Potassium 3.8 Chloride 103 Carbon Dioxide 28.1 Anion Gap 8.9 BUN 17 Creatinine 0.7 Est GFR (CKD-EPI 2020) 99.74 Glucose 128 H Calcium 8.6 Total Bilirubin 0.5 AST 38 H ALT 35 Alkaline Phosphatase 119 H Total Protein 7.6 Albumin 4.2 Lipase 35 ABO/Rh AB Negative Antibody Screen NEGATIVE Last Vital Signs Temp 36.7 C 02/07/25 12:55 Pulse 70 02/07/25 21:29 Resp 14 02/07/25 18:38 BP 125/69 02/07/25 21:29 Pulse Ox 98 02/07/25 21:29 Time Spent Time spent with Patient: 55-74 minutes Time was spent: preparing to see the patient(eg.review tests), obtaining and/or reviewing separately otained hiistory, ordering medications,tests, procedures, referring, communicating with other health career development associate, indepentently interpreting results, counseling the patient and care coordination
[2025-02-07] MEDS: HYDROmorphone 2 MG/ML SYR IVP (22:44)
[2025-02-07] MEDS: Gabapentin 800 MG TAB 1600 MG PO (23:50)
[2025-02-07] MEDS: traMADol 50 MG TAB PO (23:50)
[2025-02-07] MEDS: Cyclobenzaprine 10 MG TAB PO (23:51)
[2025-02-08] VITALS (15 sets, daily range): BP systolic 95–133; BP diastolic 57–78; PULSE 62–104; RESP 7–21; TEMP 36.2–36.7; O2SAT 75–98
[2025-02-08] MEDS: Ramelteon 8 MG TAB PO ×2 (00:07→19:49)
[2025-02-08] MEDS: Ibuprofen 800 MG TAB PO ×2 (00:30→18:53)
--- NOTE | 2025-02-08 01:11 | W.PC.ACHO ---
Registration Status: ADM THU Primary Language: Preferred Language: Spanish ED Information & Data Chief Complaint Fall/Non TraumaCriteria 02/07/25 15:46 Triage Note fell outside down 2 steps of 02/07/25 12:55 porch. carrying a heavy tool box and his knee gave out. hit right side of face on a pole. states he hit is head pretty hard causing ringing in his right ear. denies LOC or neck pain. c/o right upper abd, right knee and díaz pain. abrasion noted to díaz. pt takes daily aspirin. Medical / Surgical History (Last Updated 01/24/24 @ 10:29 by Helen Kapoor RN) History of fracture of right hip History of pancreatitis (Last Updated 01/24/24 @ 10:29 by Helen Kapoor RN) History of arthroplasty of finger of left hand History of vasectomy History of carpal tunnel release Hx of cholecystectomy History of bariatric surgery Most Recent Vital Signs Temperature 36.7 C 02/07/25 23:42 Temperature Source Temporal Artery Scan 02/07/25 23:42 Pulse 90 02/07/25 23:42 Respiratory Rate 22 02/07/25 23:42 Respiratory Effort Normal 02/07/25 23:45 Respiratory Depth Normal 02/07/25 23:45 Respiratory Pattern Tachypnea 02/07/25 23:45 Blood Pressure 145/83 H 02/07/25 23:42 Blood Pressure Mean 103 02/07/25 23:42 Blood Pressure Position Supine 02/07/25 16:17 Pulse Oximetry 94 02/07/25 23:42 Oxygen Delivery Method Room Air 02/07/25 23:45 Oxygen Flow Rate 0 02/07/25 23:45 Pain Level 3 02/07/25 23:13 Allergies Penicillins Allergy (Unverified 02/07/25 13:33) Unknown beta blockers Allergy (Uncoded 02/07/25 13:33) Unknown raw cheese Allergy (Uncoded 02/07/25 13:33) Unknown Precautions Isolation Standard precaution 02/07/25 13:53 Active Medications Generic Name Dose Route Start Last Admin Trade Name Freq PRN Reason Stop Dose Admin Cyclobenzaprine HCl 10 mg 02/07/25 23:36 02/07/25 23:51 Cyclobenzaprine 10 Mg Tab PO 10 mg HS NICHOLAS Administration Enoxaparin Sodium 40 mg 02/07/25 23:00 02/08/25 00:05 Enoxaparin 40 Mg/0.4 Ml Syr SC Not Given Q24H NICHOLAS Gabapentin 1,600 mg 02/07/25 23:30 02/07/25 23:50 Gabapentin 800 Mg Tab PO 1,600 mg TID NICHOLAS Administration Hydromorphone HCl 2 mg 02/07/25 22:34 02/07/25 22:44 Hydromorphone 2 Mg/Ml Syr IVP 2 mg Q4H PRN PRN Administration Ibuprofen 800 mg 02/07/25 23:31 02/08/25 00:30 Ibuprofen 800 Mg Tab PO 800 mg Q8H PRN PRN Administration Iohexol 500 ml 02/07/25 14:45 02/07/25 14:37 Omnipaque 350 Mg/Ml 500 Ml Btl-Imaging Package IJ 03/09/25 23:59 100 ml DIRECTED NICHOLAS Administration Ramelteon 8 mg 02/07/25 23:31 02/08/25 00:07 Ramelteon 8 Mg Tab PO 8 mg HS NICHOLAS Administration Sodium Chloride 50 ml 02/07/25 14:45 02/07/25 14:38 Normal Saline - Diluent 50 Ml Vial IJ 50 ml DIRECTED NICHOLAS Administration Sodium Chloride 0 ml 02/07/25 14:36 02/07/25 14:40 Normal Saline Flush 10 Ml Syr IVP 10 ml PRN PRN Administration Tramadol HCl 50 mg 02/07/25 23:31 02/07/25 23:50 Tramadol 50 Mg Tab PO 50 mg Q6H PRN PRN Administration IV IV Catheter Type [Left Saline Lock Antecubital] IV Catheter Gauge [Left 18 Antecubital] Diet Orders Category Date Time Status Regular/Normal [DIET] Nutrition 02/08/25 Breakfast Active Diagnostics 02/07/25 02/07/25 Range/Units 13:48 13:28 WBC 8.21 (4.4-10.8) 10^3/uL RBC 4.55 (4.36-5.78) 10^6/uL Hgb 15.2 (13.5-17.5) g/dL Hct 46.3 (40.0-50.0) % MCV 102 H (80-95) fL MCH 33.4 H (27.0-33.0) pg MCHC 32.8 (32.0-36.0) % RDW 12.9 (11.8-14.1) % Plt Count 263 (130-400) 10^3/uL MPV 9.0 (8.0-11.0) fL Immature Gran % 1.0 % Neutrophils % 78.0 % Lymphocytes % 13.0 % Monocytes % 6.1 % Eosinophils % 1.5 % Basophils % 0.4 % Nucleated RBC % 0.0 (0.0-0.3) % Absolute Neutrophils 6.41 (1.2-6.7) 10^3/uL Absolute Lymphocytes 1.07 L (1.2-3.4) 10^3/uL Absolute Monocytes 0.50 (0.1-0.8) 10^3/uL Absolute Eosinophils 0.12 (0.0-0.7) 10^3/uL Absolute Basophils 0.03 (0.0-0.2) 10^3/uL Sodium 140 (136-145) mmol/L Potassium 3.8 (3.5-5.1) mmol/L Chloride 103 (98-107) mmol/L Carbon Dioxide 28.1 (21.0-32.0) mmol/L Anion Gap 8.9 (3-11) mmol/L BUN 17 (7-18) mg/dL Creatinine 0.7 (0.70-1.30) mg/dL Est GFR (CKD-EPI 2020) 99.74 (mL/min/1.73m2) Glucose 128 H (74-106) mg/dL Calcium 8.6 (8.5-10.1) mg/dL Total Bilirubin 0.5 (0.2-1.0) mg/dL AST 38 H (15-37) U/L ALT 35 (16-63) U/L Alkaline Phosphatase 119 H (46-116) U/L Total Protein 7.6 (6.4-8.2) g/dL Albumin 4.2 (3.4-5.0) g/dL Lipase 35 (<78) U/L ABO/Rh AB Negative Antibody Screen NEGATIVE Intake and Output - 24 Hour Total 02/07/25 12:45 thru 02/07/25 23:45 Intake Total 260 Balance 260 Weight 126.6 kg Intake: IV 60 Oral 200 Falls Risk Assessment History of Falls Admit Due to Fall 02/07/25 23:45 Contributing Factors Unstable 02/07/25 23:45 Ambulatory Aids Independent 02/07/25 23:45 Tubes/Lines With any additional score 02/07/25 23:45 Gait Evaluation No gait disturbance 02/07/25 23:45 Cognition No cognitive impairment 02/07/25 23:45 Fall Total Score 48 02/07/25 23:45 Level of Risk Moderate Risk 02/07/25 23:45 Problems (Last Updated 01/24/24 @ 10:29 by Helen Kapoor RN) Elevated MCV (Acute) Acute back pain (Acute) Fracture of lumbar spine (Acute) Type 2 diabetes mellitus (Acute) Hypertension (Chronic) Hypercholesterolemia (Acute) Attestation Statement: By documenting the first initial, last name, and credentials of the reporting nurse below, both parties acknowledge that all relevant information regarding the patient handoff has been communicated, and that all questions have been addressed to ensure continuity and safety of care. Additional Patient Information/Comments: Report Received From: Shell Short RN
[2025-02-08] MEDS: HYDROmorphone 2 MG/ML SYR IVP (02:54)
--- NOTE | 2025-02-08 07:35 | INITIAL_ITS ---
Date of service: 02/08/25 Time of Service: 13:47 Care Management Initial Assmt Initial Assessment Reason for Hospitalization: back pain Functional Status/Living Situation Patient Presentation: Emery was lying down in bed and awake when CM met with him. He presented to the ED yesterday afternoon after a mechanical fall. Per report, he will have an MRI without of the thoracic and lumbar spine and if normal results then x-rays for flexion and extension and reconsultation with [facility] neurosurgery. Per RN, he had been sleeping most of the morning. Emery engaged minimally in conversation but was appropriate throughout the interaction. He reports residing in [place] with his , Yadira. The couple has two adult children who both live locally. Emery states that he uses a cane for ambulation and also has a walker available at home, though he primarily ambulates with the cane. He reports being independent with ADLs, including driving. Emery does not currently have any home or community-based support services and does not feel such services are necessary at this time. Per report, it is anticipated that Emery will remain at [facility] until his MRI can be completed on Monday. CM will continue to follow. Town of Residence: [place] Resides with: Spouse (Yadira ) Significant Other/Family: Local (2 children, one living in [place] and one in [place]) Natural Supports: family Employment Status: Retired Instrumental Activities of Daily Living (ADLs): Independent Medications Medication Management: No Issues/Barriers identified Physical Functioning/Mobility Assistive Device: May require brace Advance Directives Advance Directives: Do you have an Advance Directive: N , 19:04 AD On File at [facility]: N 08/06/12, 19:04 Date Asked 02/07/25 02/07/25, 12:58 AD Date Reviewed COLST On File at [facility] COLST Date Scanned Code Status Resuscitation Status Full Code Portal Pt does not currently have a portal and education provided: Yes Insurance Coverage/Financial Issues Insurance: BC/BS [facility] Advantage - [id number] Care Team Visit Care Team Role Provider Type Massimo Mary MD MD [facility] STAFF PHYSICIAN Jennifer Newman Primary Care Provider NON-[facility] STAFF PHYSICIAN SANIA Lerner Emergency Provider PHYSICIANS FOOD TECHNICIAN Bryan Lamb MD Admit Provider [facility] STAFF PHYSICIAN Attending Provider Discharge Potential Discharge Needs: Imaging/labs, PT Evaluation and PCP F/U Appt Anticipated Barriers to Discharge: None Identified Patient/Family Education Needs: Review discharge instructions, discuss Ask Me Three Transportation: Private vehicle Plan: Anticipate Emery will be discharged home once medically ready. It will be recommended he follow up with community provers and discharge plan of care. He will transport via private vehicle by his . CM will follow. 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 (Acute) Type 2 diabetes mellitus (Acute) Atherosclerosis of coronary artery without angina pectoris (Acute) Low back pain (Acute) Postgastric surgery syndrome (Acute) Peripheral venous insufficiency (Acute) Hypertension (Chronic) Erectile dysfunction (Acute) Obesity (Chronic) Hypercholesterolemia (Acute) Medical History (Updated 02/08/25 @ 11:27 by Massimo Mary MD) History of fracture of right hip History of pancreatitis Surgical History (Updated 01/24/24 @ 10:29 by Helen Kapoor RN) History of arthroplasty of finger of left hand History of vasectomy History of carpal tunnel release Hx of cholecystectomy History of bariatric surgery Social History Smoking/Tobacco Use Status: Never Smoking risk assessment performed?: Yes Alcohol Intake: current Alcohol Intake frequency: holidays/special occasions only Drug use: Never Substance use type: does not use Housing: house Do you feel safe at home: Yes Do you feel safe in your relationship?: Yes Readmission Within the Past 30 Days Yes or No: No
[2025-02-08] MEDS: Normal Saline Flush 10 ML SYR IVP (07:40)
--- NOTE | 2025-02-08 11:08 | PHA.REVIEW2 ---
Pharmacy Admission Review Admission Clinical Review Admission Pharmacy Review: Elevated MCV (Acute) Acute back pain (Acute) Fracture of lumbar spine (Acute) Type 2 diabetes mellitus (Acute) Hypercholesterolemia (Acute) Penicillins Allergy (Unverified 02/07/25 13:33) Unknown beta blockers Allergy (Uncoded 02/07/25 13:33) Unknown raw cheese Allergy (Uncoded 02/07/25 13:33) Unknown Resuscitation Status Full Code Height 6 ft Weight 125.7 kg Pharmacy Admission Review Renal Dosing Renal Dosing: BUN 17 mg/dL (7-18) 02/07/25 13:28 Creatinine 0.7 mg/dL (0.70-1.30) 02/07/25 13:28 Medications needing adjustments: Reviewed (CrCl 95.49 mL/min) List of meds needing interventions: Current medications are okay Anticoagulation Anticoagulation: Hgb 15.2 g/dL (13.5-17.5) 02/07/25 13:28 Hct 46.3 % (40.0-50.0) 02/07/25 13:28 Plt Count 263 10^3/uL (130-400) 02/07/25 13:28 Creatinine 0.7 mg/dL (0.70-1.30) 02/07/25 13:28 DVT Prophylaxis: Reviewed Medications: Enoxaparin (40mg daily) Opiate Usage Evaluate Pain Scale/Pains Meds: Reviewed (hydromorphone 1mg IVP q6h PRN - 0mg/24hrs) Scheduled Bowel Reg ordered if on Opiates?: No (PRN docusate/Miralax) Relevant Labs Relevant Labs: Sodium 140 mmol/L (136-145) 02/07/25 13:28 Potassium 3.8 mmol/L (3.5-5.1) 02/07/25 13:28 Chloride 103 mmol/L (98-107) 02/07/25 13:28 Electrolytes, C-Reactive P, ESR: Reviewed (No new labs for today) DM Control DM Control: Glucose 128 mg/dL (74-106) H 02/07/25 13:28 DM Control: Reviewed Insulin Dosing, Diabetic Medication: T2DM listed in patients chart, no medications at this time Cardiac Review BP, HR, EF%: Reviewed (HR/BP WNL, oxygen flow rate = 1) QTc Review QTc: Reviewed (No EKG on file) IV to PO Switch IV Medications: Reviewed (hydromorphone) Home Meds Home Med List reviewed: Intervened Relevent Home Meds Not ordered & why?: tadalafil (PRN) Listed as not taking on home med list: ibuprofen, omeprazole, oxycodone, senna, tramadol, cyclobenzaprine, ascorbic acid and vitamin D. Removed ibuprofen, omeprazole, oxycodone, senna and tramadol. Did not cancel any associated orders. Let cyclobenzaprine, ascorbic acid and vitamin D as cyclobenzaprine has recent fill history and overnight pharmacy left a note that the ascorbic acid was verified with the patient. Provider aware. Current Meds Current Medication Order Review: Intervened Comments: Added IV access order
--- NOTE | 2025-02-08 11:21 | W.PM.PROGNOT ---
Date of Service Date of service: 02/08/25 Time of Service: 11:21 Assessment and Plan Assessment and plan (1) Acute back pain: Status: Acute Assessment and plan: -back pain after patient experienced a fall at home while working -Trauma surgery recommended MRI thoracic and lumbar spine, however, MRI not available until Monday -once patient has MRI, recommendation is that if it is negative plan is to get x-ray for flexion and extension and then to reconsult Neurosurgery -patient had total of 10mg of morphine in the ED follow by 4mg IV dilaudid upon arrival to the ICU and is somnolent this AM -PRN IV dilaudid decreased to 1mg Q4hr (2) Acute hypoxemic respiratory failure: Status: Acute Assessment and plan: -iatrogenic, secondary to pain medications as noted above -currently requiring 1L oxymask to maintain O2 sat >92%, will wean as tolerated (3) Type 2 diabetes mellitus: Status: Acute Assessment and plan: -diet controlled (4) Hypercholesterolemia: Status: Acute Assessment and plan: -continue home statin (5) Hypertension: Status: Chronic Assessment and plan: -does not appear to be on any home medications Subjective Subjective Interval history since last seen: Patient somnolent this AM but is able to awaken with verbal stimulation. Exam Narrative Exam Narrative: fatigued older gentleman laying in bed in no acute distress, somnolent but able to awaken and answer questions appropriately, 1L oxy mask in place, heart RRR, lungs CTAB, abdomen soft, non-tender, non-distended, normal sensation and streanght in bilateral upper and lower extremities Objective Last Vital Signs Temp 97.2 F L 02/08/25 07:09 Pulse 83 02/08/25 10:00 Resp 9 L 02/08/25 10:00 BP 105/60 02/08/25 10:00 Pulse Ox 96 02/08/25 10:44 Laboratory Results - last 24 hr 02/07/25 02/07/25 13:28 13:48 WBC 8.21 RBC 4.55 Hgb 15.2 Hct 46.3 MCV 102 H MCH 33.4 H MCHC 32.8 RDW 12.9 Plt Count 263 MPV 9.0 Immature Gran % 1.0 Neutrophils % 78.0 Lymphocytes % 13.0 Monocytes % 6.1 Eosinophils % 1.5 Basophils % 0.4 Nucleated RBC % 0.0 Absolute Neutrophils 6.41 Absolute Lymphocytes 1.07 L Absolute Monocytes 0.50 Absolute Eosinophils 0.12 Absolute Basophils 0.03 Sodium 140 Potassium 3.8 Chloride 103 Carbon Dioxide 28.1 Anion Gap 8.9 BUN 17 Creatinine 0.7 Est GFR (CKD-EPI 2020) 99.74 Glucose 128 H Calcium 8.6 Total Bilirubin 0.5 AST 38 H ALT 35 Alkaline Phosphatase 119 H Total Protein 7.6 Albumin 4.2 Lipase 35 ABO/Rh AB Negative Antibody Screen NEGATIVE Time Spent with Patient Time Spent with Patient: >50 minutes Time was spent: preparing to see the patient(eg.review tests), obtaining and/or reviewing separately otained hiistory, ordering medications,tests, procedures, referring, communicating with other health early breastfeeding care specialist, indepentently interpreting results, counseling the patient and care coordination
[2025-02-08] MEDS: Acetaminophen 325 MG TAB PO ×2 (12:13→19:49)
[2025-02-08] MEDS: HYDROmorphone 2 MG/ML SYR 1 MG IVP ×2 (14:27→20:40)
[2025-02-08] MEDS: Gabapentin 800 MG TAB 1600 MG PO ×2 (14:27→18:53)
[2025-02-08] MEDS: Ascorbic Acid 500 MG TAB 2000 MG PO ×2 (14:27→19:50)
[2025-02-08] MEDS: Normal Saline 1,000 ML 75 ML IV (14:31)
[2025-02-08] MEDS: Cyclobenzaprine 10 MG TAB PO (18:54)
[2025-02-08] MEDS: Enoxaparin 40 MG/0.4 ML SYR SC (22:54)
[2025-02-09] VITALS (12 sets, daily range): BP systolic 81–122; BP diastolic 56–69; PULSE 67–93; RESP 11–20; TEMP 36.2–36.6; O2SAT 85–96
[2025-02-09] MEDS: Normal Saline 1,000 ML 75 ML IV ×2 (03:19→15:40)
[2025-02-09] MEDS: Acetaminophen 325 MG TAB PO ×2 (08:06→16:49)
[2025-02-09] MEDS: Gabapentin 800 MG TAB 1600 MG PO ×3 (08:07→20:18)
[2025-02-09] MEDS: Cholecalciferol (Vitamin D3) 400 UNIT TAB PO (08:07)
[2025-02-09] MEDS: Ferrous Sulfate 325 MG TAB PO (08:07)
[2025-02-09] MEDS: Pantoprazole 40 MG TABCR PO (08:08)
[2025-02-09] MEDS: Ascorbic Acid 500 MG TAB 2000 MG PO ×3 (08:10→20:18)
[2025-02-09] MEDS: HYDROmorphone 2 MG/ML SYR 1 MG IVP ×3 (08:55→22:04)
--- NOTE | 2025-02-09 09:42 | W.PM.PROGNOT ---
Date of Service Date of service: 02/09/25 Time of Service: 08:00 Assessment and Plan Assessment and plan (1) Acute back pain: Status: Acute Assessment and plan: -back pain after patient experienced a fall at home while working -Trauma surgery recommended MRI thoracic and lumbar spine, however, MRI not available until Monday -once patient has MRI, recommendation is that if it is negative plan is to get x-ray for flexion and extension and then to reconsult Neurosurgery -patient had total of 10mg of morphine in the ED follow by 4mg IV dilaudid upon arrival to the ICU and is somnolent this AM -PRN IV dilaudid decreased to 1mg Q4hr February 09: no changes in management, continue PRN narcotics. MRI tomorrow, then re-consult [facility] neurosurgery. Continue enoxaparin for VTE ppx. (2) Acute hypoxemic respiratory failure: Status: Acute Assessment and plan: -iatrogenic, secondary to pain medications as noted above -currently requiring 1L oxymask to maintain O2 sat >92%, will wean as tolerated February 09: He continues to require NC1L, changed SpO2 expectation to 88-92% (3) Type 2 diabetes mellitus: Status: Acute Assessment and plan: -diet controlled (4) Hypercholesterolemia: Status: Acute Assessment and plan: -continue home statin (5) Hypertension: Status: Chronic Assessment and plan: -does not appear to be on any home medications Subjective Subjective Interval history since last seen: Mr. Moulton is comfortable in bed, somnolent due to pain medication. Awaiting MRI Feb 10Monday. Exam Narrative Exam Narrative: General: This is a pleasant, somnolent man in no distress HEENT: Normocephalic, atraumatic CV: RRR Resp: CTAB on NC1L Abd: soft, NTND MSK: voluntary motion x4 with normal tone Neuro: awake, alert, no focal deficits Objective Last Vital Signs Temp 36.6 C 02/09/25 03:20 Pulse 79 02/09/25 04:01 Resp 13 02/09/25 04:01 BP 113/56 L 02/09/25 04:01 Pulse Ox 93 02/09/25 08:18 Time Spent with Patient Time Spent with Patient: 25-34 minutes Time was spent: preparing to see the patient(eg.review tests), obtaining and/or reviewing separately otained hiistory, ordering medications,tests, procedures, referring, communicating with other health hospice spiritual care coordinator, indepentently interpreting results, counseling the patient and care coordination
[2025-02-09] MEDS: Normal Saline Flush 10 ML SYR IVP (13:33)
[2025-02-09] MEDS: Cyclobenzaprine 10 MG TAB PO (20:18)
[2025-02-09] MEDS: Ramelteon 8 MG TAB PO (20:18)
[2025-02-09] MEDS: Ibuprofen 800 MG TAB PO (20:18)
[2025-02-09] MEDS: Enoxaparin 40 MG/0.4 ML SYR SC (22:04)
[2025-02-09] MEDS: Lidocaine 2% Jelly 6 ML SYR UR (22:04)
[2025-02-09] MEDS: Tamsulosin 0.4 MG CAPCR PO (22:04)
[2025-02-10] VITALS (11 sets, daily range): BP systolic 104–118; BP diastolic 59–75; PULSE 65–84; RESP 11–23; TEMP 36.5–37; O2SAT 91–95
--- NOTE | 2025-02-10 | DI.MRI_ITS ---
Exam(s) MR THORACIC SPINE WO EXAM: MR THORACIC SPINE WO CLINICAL HISTORY: back pain TECHNIQUE: Multiplanar multisequence MRI of the thoracic spine was performed without intravenous contrast. COMPARISON: CT CT LUMBAR SPINE RECONS from 02/07/[address] ABDOMEN PELVIS W from 02/07/2025 MR MR LUMBAR SPINE WO from 02/10/2025 FINDINGS: OSSEOUS: There is a nondisplaced fracture line in the anterior right side of the T9 vertebral body. There is mild surrounding bone edema but there is prevertebral and paravertebral signal abnormality consistent with hematoma anteriorly at this level and also extending anterior to the upper aspect of T8. No retropulsed cortex evident at this level. Incidentally noted is a benign intraosseous hemangioma in the posterior right side of T9 vertebral body measuring 1.5 cm AP by 1.3 cm wide by 1.2 cm craniocaudal. Other benign intraosseous hemangioma is noted in T10 vertebral body. There is a posterolateral right disc protrusion noted at the T6-T7 level. This indents the right-side of the thecal sac. Central canal dimensions are lower normal. There is no prominent foraminal stenosis on either side at this level. There is also a posterolateral right disc protrusion at T4-5 level, similar in size and appears to the posterolateral right disc protrusion at T6-7 level. Prominent anterior osteophytes noted at T4-5 level. No disc protrusion at this level. THORACIC SPINAL CORD: There is no abnormal signal in the cervical spinal cord and no evidence of focal cord atrophy nor focal cord swelling. There is no evidence of syringomyelia nor significant spinal cord dysraphism. There is no evidence of mass at the conus medullaris. The position of the conus medullaris is at normal level. PARASPINAL TISSUES: No significant masses nor fluid collections evident. IMPRESSION: 1. There is a nondisplaced acute/subacute fracture of the anterior right side of T9 vertebral body. There is no posterior displacement of the cortex into the spinal canal at this level. However, there is significant anterior hematoma at this level as well as anterior to the T8 vertebral body. 2. There are posterolateral right side disc herniations at both T4-5 and T6-7 levels, as described above. 3. Benign intraosseous hemangiomas are noted in T9 and T10 vertebral bodies. Report called by myself to ICU 02/10/2025 at 1:52 pm. Discussed with hospitalist my PACS monitor 02/10/2025 2:15 p.m. DATA REPOSITORY:
--- NOTE | 2025-02-10 | DI.MRI_ITS ---
Exam(s) MR LUMBAR SPINE WO EXAM: MR LUMBAR SPINE WO CLINICAL HISTORY: back pain. TECHNIQUE: Multiplanar multisequence MRI of the Lumbar spine was performed. COMPARISON: Recent CT scan reviewed FINDINGS: Conus medullaris is at normal T12-L1 level. There is no evidence of conus mass nor subjacent clumping of intrathecal nerve roots to suggest arachnoiditis. The distal thecal sac appears unremarkable.There is no evidence of Tarlov intrasacral cysts nor other significant findings within the sacral canal Bones:There is fatty signal abnormality throughout the L1 vertebral body and concavity of the superior endplate but doubtful for recent compression fractures there is no abnormal signal on STIR imaging in the L1 vertebral body. There is a small benign intraosseous hemangioma in the L3 vertebral body. No lytic lesions identified. There is partial right-sided fusion of L3-4 and L4-5 vertebral bodies. Right sided syndesmophytes are noted at the L1-2 and L2-3 levels. There is some abnormal signal evident within the bridging right-sided syndesmophyte at the L2-3 level consistent with finding on CT scan of possible fracture at this level. With respect to the individual levels... T12-L1: Mild smooth indentation of superior endplate of L1 but no evidence of acute fracture. Posteriorly mild annular bulging but no significant disc herniation or central canal stenosis. No foraminal stenosis. L1-2: Normal disc height and signal. No disc herniation nor central canal stenosis.No foraminal stenosis L2-3: Normal disc height. However, there is increased signal in the disc space on STIR imaging, possibly significant. Adjacent endplates of L2 and L3 appear intact On the sagittal T1 and STIR images there is a posterior left-sided epidural finding but there is no protruded disc fragment substantiated on the axial images. Symmetrical annular bulging is noted. Central canal dimensions are lower normal. There is no foraminal stenosis on either side at this level. Benign small intraosseous hemangioma is noted slightly right of center in the L3 vertebral body. L3-4: Partial fusion across the right-side of the disc space. Mild narrowing of the left side of the disc space. There is broad symmetrical annular bulging without a dominant disc herniation. Central canal dimensions lower normal. No significant foraminal stenosis on either side at this level. Mild facet arthropathy. L4-5: Moderate disc space narrowing. Posteriorly there is symmetrical annular bulging without a dominant disc herniation. Central canal dimensions are lower normal. Minimal facet joint degenerative changes. No significant foraminal stenosis on either side. L5-S1: This level exhibits chronic advanced disc space narrowing and anterior osseous lipping and sub endplate Modic type 2 sub fatty marrow changes. Posteriorly there is a central subligamentous disc protrusion which contacts the thecal sac. Central canal dimensions are lower normal. There is severe bilateral foraminal stenosis which is due to the advanced disc height loss at this level and results in significant impingement of the exiting bilateral nerve roots between the overlying L5 pedicles and subjacent annulus. The facet joints at this level appear relatively unremarkable. Soft tissues: No evidence of paraspinal mass. IMPRESSION: 1. Multilevel findings as described individually above. 2. There is severe bilateral foraminal stenosis at L5-S1 which is mostly related to the advanced disc height loss at this level, resulting in impingement of the exiting nerve roots bilaterally between the overlying L5 pedicles and subjacent L5-S1 annulus. 3. Partial right-sided fusion of L3 upon L4 and L4 upon L5. Also right-sided syndesmophytes at L1-2 and L2-3 levels and the right-sided bridging syndesmophyte at L2-3 level exhibits decreased T1 signal implying element of bone edema and this may be fractured, as described on recent CT scan of 02/08/20 25 4. Mild height loss of superior endplate of L1 but no evidence of acute fracture. Other findings as above. DATA REPOSITORY:
[2025-02-10] MEDS: Normal Saline 1,000 ML 75 ML IV (04:47)
[2025-02-10 07:26] LABS: Anion Gap 8.5 mmol/L (3-11); BUN 15 mg/dL (7-18); CO2 27.5 mmol/L (21.0-32.0); Calcium 8.1 mg/dL (8.5-10.1); Chloride 104 mmol/L (98-107); Glucose 131 mg/dL (74-106); Potassium 4.0 mmol/L (3.5-5.1); Sodium 140 mmol/L (136-145)
[2025-02-10] MEDS: HYDROmorphone 2 MG/ML SYR 1 MG IVP ×5 (08:38→23:51)
[2025-02-10] MEDS: Normal Saline Flush 10 ML SYR IVP ×4 (08:38→20:35)
[2025-02-10] MEDS: Gabapentin 800 MG TAB 1600 MG PO ×3 (08:39→20:34)
[2025-02-10] MEDS: Ferrous Sulfate 325 MG TAB PO (08:39)
[2025-02-10] MEDS: Cholecalciferol (Vitamin D3) 400 UNIT TAB PO (08:39)
[2025-02-10] MEDS: Tamsulosin 0.4 MG CAPCR PO (08:39)
[2025-02-10] MEDS: Ibuprofen 800 MG TAB PO ×2 (08:39→16:51)
[2025-02-10] MEDS: Ascorbic Acid 500 MG TAB 2000 MG PO ×3 (08:39→20:34)
[2025-02-10] MEDS: Senna TAB 2 TAB PO ×2 (08:39→20:34)
[2025-02-10] MEDS: Acetaminophen 325 MG TAB PO ×4 (08:39→21:09)
--- NOTE | 2025-02-10 16:41 | PDOC.CMPRO ---
Date of service: 02/10/25 Time of Service: 16:47 Care Management Progress Note Progress Note Text Progress Note Text: Emery was lying in bed when CM met with him. He is in the ICU, but is med surge status. He reported that he had an MRI this morning, and was still waiting for results at that time. Per MD, depending on the results of the MRI, he may be ready for discharge vs transfer, if indicated. Emery expressed concern about being in the ICU, understanding that he is a med/surge patient, and he is worried about billing; CM verified that he is med/surge status, and is in the ICU as an overflow, therefore his billing should reflect that. CM will continue to follow. Discharge Potential Discharge Needs: PCP F/U Appt Anticipated Barriers to Discharge: None Identified Patient/Family Education Needs: Review discharge instructions, discuss Ask Me Three Transportation: Private vehicle Plan: Emery will return home once medically cleared vs transfer to [facility], if indicated. Transportation will be determined by disposition; if returning home, his will transport. He will follow up with his PCP and discharge plan of care. CM will continue to follow. Social Determinants of Health Screening Will the Patient Participate in the Screening?: Declined to provide
[2025-02-10] MEDS: Methocarbamol 750 MG TAB 1500 MG PO ×2 (16:51→22:17)
[2025-02-10] MEDS: traMADol 50 MG TAB PO ×2 (16:52→23:51)
--- NOTE | 2025-02-10 17:02 | PGE_ITS ---
Date of Service Date of service: 02/10/25 Time of Service: 08:00 Assessment and Plan Assessment and plan (1) Acute back pain: Status: Acute Assessment and plan: -back pain after patient experienced a fall at home while working -Trauma surgery recommended MRI thoracic and lumbar spine, however, MRI not available until Monday -once patient has MRI, recommendation is that if it is negative plan is to get x-ray for flexion and extension and then to reconsult Neurosurgery -patient had total of 10mg of morphine in the ED follow by 4mg IV dilaudid upon arrival to the ICU and is somnolent this AM -PRN IV dilaudid decreased to 1mg Q4hr February 09: no changes in management, continue PRN narcotics. MRI tomorrow, then [place] [facility] [place]. Continue enoxaparin for VTE ppx. February 10: reviewed MRI results with Dr Spicer. Hematoma anterior to L1, other deficits appear chronic. Spoke with [facility] [place], awaiting NSGY review. Likely TLSO and PT/OT. (2) Acute hypoxemic respiratory failure: Status: Resolved Assessment and plan: -iatrogenic, secondary to pain medications as noted above -currently requiring 1L oxymask to maintain O2 sat >92%, will wean as tolerated February 09: He continues to require NC1L, changed SpO2 expectation to 88-92% February 10: On room air, resolved. (3) Type 2 diabetes mellitus: Status: Acute Assessment and plan: -diet controlled (4) Hypercholesterolemia: Status: Acute Assessment and plan: -continue home statin (5) Hypertension: Status: Chronic Assessment and plan: -does not appear to be on any home medications (6) Urinary retention with incomplete bladder emptying: Status: Acute Assessment and plan: As likely BPH as neurological, reviewed with [facility] [place] Continue tate for now Subjective Subjective Interval history since last seen: Mr Moulton had a tate placed for urine retention early this morning. Previously he had been producing urine but bladder scan was 1500. He reports that other than back pain he has no symptoms. Exam Narrative Exam Narrative: General: This is a pleasant, somnolent man in no distress HEENT: Normocephalic, atraumatic CV: RRR Resp: CTAB on room air Abd: soft, NTND MSK: voluntary motion x4 with normal tone Neuro: awake, alert, no focal deficits Objective Last Vital Signs Temp 37 C 11/10/25 08:47 Pulse 73 02/10/25 15:40 Resp 11 L 02/10/25 10:00 BP 115/73 02/10/25 15:40 Pulse Ox 93 02/10/25 15:39 Laboratory Results - last 24 hr 02/10/25 05:40 Sodium 140 Potassium 4.0 Chloride 104 Carbon Dioxide 27.5 Anion Gap 8.5 BUN 15 Creatinine 0.6 L Est GFR (CKD-EPI 2020) 104.49 Glucose 131 H Calcium 8.1 L Time Spent with Patient Time Spent with Patient: 35-49 minutes Time was spent: preparing to see the patient(eg.review tests), obtaining and/or reviewing separately otained hiistory, ordering medications,tests, procedures, referring, communicating with other health managed care specialist, indepentently interpreting results, counseling the patient and care coordination
[2025-02-10] MEDS: Ramelteon 8 MG TAB PO (20:34)
[2025-02-10] MEDS: Enoxaparin 40 MG/0.4 ML SYR SC (22:18)
[2025-02-11] VITALS (7 sets, daily range): BP systolic 115–130; BP diastolic 63–78; PULSE 66–91; RESP 18; TEMP 36.7–37.1; O2SAT 96
--- NOTE | 2025-02-11 | DI.RAD_ITS ---
Exam(s) XR LUMBAR SPINE AP, LAT EXAM: XR LUMBAR SPINE AP, LAT CLINICAL HISTORY: L1 injury, [facility] [place] NSGY wants 45 degree study please. TECHNIQUE: 2D digital imaging was performed. COMPARISON: No exams were available for comparison FINDINGS: 3 views Obtained AP and 45 degree flexion lateral views obtained field of view from T9 down to superior aspect of L4. Technically difficult exam. No evidence of obvious fracture on these portable images. No obvious listhesis. IMPRESSION: No listhesis evident DATA REPOSITORY: RADIATION DOSE DELIVERED:
[2025-02-11] MEDS: Ibuprofen 800 MG TAB PO ×3 (01:24→18:20)
[2025-02-11] MEDS: HYDROmorphone 2 MG/ML SYR 1 MG IVP ×8 (02:21→20:57)
[2025-02-11 03:14] LABS: Cannabinoids THC Negative (Negative)
[2025-02-11] MEDS: Normal Saline Flush 10 ML SYR IVP ×3 (07:26→19:14)
[2025-02-11] MEDS: Cholecalciferol (Vitamin D3) 400 UNIT TAB PO (07:27)
[2025-02-11] MEDS: Methocarbamol 750 MG TAB 1500 MG PO ×3 (07:27→20:57)
[2025-02-11] MEDS: Gabapentin 800 MG TAB 1600 MG PO ×3 (07:27→19:13)
[2025-02-11] MEDS: Tamsulosin 0.4 MG CAPCR PO (07:28)
[2025-02-11] MEDS: Ferrous Sulfate 325 MG TAB PO (07:28)
[2025-02-11] MEDS: Ascorbic Acid 500 MG TAB 2000 MG PO ×3 (07:28→19:13)
[2025-02-11] MEDS: traMADol 50 MG TAB PO ×2 (08:30→16:43)
--- NOTE | 2025-02-11 08:49 | CMPROGNOTE_ITS ---
Date of service: 02/11/25 Time of Service: 08:49 Care Management Progress Note Progress Note Text Progress Note Text: CM attempted to meet with Emery 4 times today. The first time he was downstairs for Xray, the second time he was on the phone and asked CM to come back later, the third time he was asleep and the 4th time he was busy with his nurse who was providing education about imaging that has been ordered. Emery was admitted with severe back pain requiring IV opioids even after 4 days of hospitalization. Imaging yesterday revealed that Emery has a hematoma anterior to L1. The provider discussed this with [facility] Neurosurgery who recommended additional i maging and, likely, a TLSO and PT and OT. Discharge Potential Discharge Needs: PCP F/U Appt Anticipated Barriers to Discharge: Medical Status Patient/Family Education Needs: Review discharge instructions, discuss Ask Me Three Transportation: Private vehicle Plan: Emery will return home once medically cleared. His will transport via private vehicle and Emery will follow up with his PCP and discharge plan of care. CM will follow and continue to assess for discharge planning concerns.. Social Determinants of Health Screening Will the Patient Participate in the Screening?: Declined to provide
--- NOTE | 2025-02-11 12:09 | IN_ITS ---
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 Tib-fib and knee x-rays negative, lumbar CT IMPRESSION: 1. Chronic multilevel degenerative disc disease and partial multilevel vertebral fusions. 2. Mild height loss of L1 vertebral body; less than 10 percent height loss, age indeterminate.) 3. There is a possible fracture line through a right sided syndesmosis at the L2 -3 level, this of questionable significance. 4. There is multilevel chronic degenerative disc disease. Most prominent narrowing is at L5-S1 level where there is also a central disc protrusion as de scribed above which indents the anterior thecal sac. Central canal dimensions at this level are lower normal but there is significant bilateral vertical foraminal stenosis at this level. 5. There is mild central canal stenosis at L2-3 level evident. Lumbar MRI IMPRESSION: 1. Multilevel findings as described individually above. 2. There is severe bilateral foraminal stenosis at L5-S1 which is mostly related to the advanced disc height loss at this level, resulting in impingement of the exiting nerve roots bilaterally between the overlying L5 pedicles and subjacent L5-S1 annulus. 3. Partial right-sided fusion of L3 upon L4 and L4 upon L5. Also right-sided syndesmophytes at L1-2 and L2-3 levels and the right-sided bridging syndesmophyte at L2-3 level exhibits decreased T1 signal implying element of bone edema and this may be fractured, as described on recent CT scan of 02/07/2025 4. Mild height loss of superior endplate of L1 but no evidence of acute fracture. Teleneuro consult with [facility] recommending lumbar x-rays in 45 degrees of flexion with TLSO in place. PT consult for application of TLSO and prep for x-ray. After x-rays MD to clarify out of bed status, recommendations from [facility] neuro surgery to progress with PT, Informed Consent/Education: Patient was instructed in purpose of PT consult and plan of care. Agreeable to proceed with established PT POC to achieve personal goals. PMHX: Elevated MCV (Acute) Acute back pain (Acute) Fracture of lumbar spine (Acute) Neuropathy due to type 2 diabetes mellitus (Acute) Retinopathy due to secondary diabetes mellitus (Acute) Type 2 diabetes mellitus (Acute) Atherosclerosis of coronary artery without angina pectoris (Acute) Low back pain (Acute) Postgastric surgery syndrome (Acute) Peripheral venous insufficiency (Acute) Hypertension (Chronic) Erectile dysfunction (Acute) Obesity (Chronic) Hypercholesterolemia (Acute) Medical History (Updated 02/07/25 @ 22:45 by Bryan Lamb MD) History of fracture of right hip History of pancreatitis Surgical History (Updated 01/24/24 @ 10:29 by Helen Kapoor RN) History of arthroplasty of finger of left hand History of vasectomy History of carpal tunnel release Hx of cholecystectomy History of bariatric surgery Social History/Home Situation: Pt resides with his single-family home. Patient ambulates with cane at baseline. Equipment Owned/DME: FWW, cane Subjective: Pt reports his pain radiates up his back from his low back. Objective: General Observation: Pt presented Semi-Peterson position in bed Mental Status: Alert and oriented as to person, place, time, and purpose. Able to pay attention. Agreeable to participate in donning/fitting of TLSO Pain: 8/10 low back radiating up and around his chest. Patient denied radiating pain down legs Vital Signs: Monitored via telemetry continuously ROM: Right Upper Extremity: Shoulder Flexion limited 120 degrees. Shoulder abduction limited 120 degrees. Elbow flexion WFL. Wrist flexion WFL. Functional opening and closing of hand WFL Left Upper Extremity: Shoulder Flexion limited 120 degrees. Shoulder abduction limited 120 degrees. Elbow flexion WFL. Wrist flexion WFL. Functional opening and closing of hand WFL Right Lower Extremity: Not tested except ankle dorsiflexion WFL. Ankle plantar flexion WFL. Left Lower Extremity: . Not tested except ankle dorsiflexion WFL. Ankle plantarflexion WFL. Strength: BUE:>/= to 3/5 no MMT/resistance performed secondary to bedrest BLE: Not tested formally; patient able to perform heel slide less than full range, ankle pumps Bed Mobility/Transfers: Bed mobility: Rolling: Max assist of 2 via logroll Supine to and from sit: Unable to assess secondary to bedrest Sit to and from stand: Unable to assess secondary to bedrest Ambulation/Gait: Unable to assess Stairs: not performed due to patient's bedrest restriction Balance: Static Sitting: Unable to assess Dynamic Sitting: Unable to assess Static Standing: Unable to assess Dynamic Standing: Unable to assess Special Tests: Mobility Limitations Standardized Measure [facility] 6 clicks Basic Mobility Inpatient Short Form: Raw Score: 7 CMS Score: 92.36 % deficit Assessment: Patient fitted for TLSO applied in supine. Patient awaiting x-rays with TLSO brace on and 45 degrees of flexion and extension. MD awaiting further recommendations from neuro surgery at [facility] prior to out of bed assessment to be completed. Patient is a 69-year-old male who presents with clinical signs and symptoms consistent with current/admitting diagnoses concerning for L2-L3 fracture that have resulted to mobility limitations, including gait inability, generalized weakness, and overall ADL decline as demonstrated by the following impairment level findings: 1. Decreased strength to bilateral lower extremity musculature 2. Impaired sitting/standing balance 3. Impaired activity tolerance 4. Pain in low back Impairments are contributing to the following functional limitations: 1. Decline in bed mobility skills 2. Decline in transfer skills 3. Inability to ambulate ambulation without assistive device and physical assistance 4. Increased completion time for mobility ADL performance 5. Increased risk for falls 6. Inability to perform steps alone safely Patient is assessed as a Moderate complexity based on the following: History: 69-year-old Male with past medical history as indicated above Examination: Demonstrable impairment in strength, balance, and mobility level with underlying impairments and functional limitations Presentation: evolving/unstable Decision Making: High complexity Goals: Goals X1 week 1. Supine-Sit min A via log roll 2. Sit-Supine min A via log roll 3. Sit-Stand CGA 4. Stand-Sit CGA with FWW 5. Bed-Chair CGA with FWW 6. Chair-Bed CGA with FWW 7. CGA gait on level surface with use of FWW for at least >50 feet without report of dyspnea 8. min A 2 steps with 2 rails step to pattern without report of increased pain in back 9. min A to don/doff TLSO Plan of Care/Treatment Plan: Await recommendations from MD for out of bed assessment as indicated 1-2x/day, 7 days/week x 1 week. Plan of care has been reviewed with the CONDUIT HELPER providing the service under Physical Therapy direction. Initiate Physical Therapy intervention for pain management as needed, strengthening, bed mobility, transfers, gait, stairs, balance training, and use of assistive device. DISCHARGE RECOMMENDATIONS: Short Term [facility]–orthotic fitting initial encounter Patient fitted for extra-large TLSO in supine position nursing staff provided with education on donning and doffing currently in supine position until restrictions changed by MD after x-rays and recommendations from neurosurgery at [facility]. TREATMENT CODE/TIME: 94794, 41110 x 2 units/[id number] Thank you for the opportunity to participate in the care of this patient. Sho Rowland, PT [facility] [place], [place]
[2025-02-11] MEDS: Acetaminophen 325 MG TAB PO ×3 (12:28→20:57)
--- NOTE | 2025-02-11 15:08 | PGE_ITS ---
Date of Service Date of service: 02/11/25 Time of Service: 08:00 Assessment and Plan Assessment and plan (1) Acute back pain: Status: Acute Assessment and plan: -back pain after patient experienced a fall at home while working -Trauma surgery recommended MRI thoracic and lumbar spine, however, MRI not available until Monday -once patient has MRI, recommendation is that if it is negative plan is to get x-ray for flexion and extension and then to reconsult Neurosurgery -patient had total of 10mg of morphine in the ED follow by 4mg IV dilaudid upon arrival to the ICU and is somnolent this AM -PRN IV dilaudid decreased to 1mg Q4hr February 09: no changes in management, continue PRN narcotics. MRI tomorrow, then re-consult [facility] neuro[place]. Continue enoxaparin for VTE ppx. February 10: reviewed MRI results with Dr Spicer. Hematoma anterior to L1, other deficits appear chronic. Spoke with [facility] neurosurgery PA, awaiting NSGY review. Likely TLSO and PT/OT. February 11: per [facility] neurosurgery advice, XR lumbar spine 45 degree in bed with TLSO on, sent images to [facility] for discussion. Will proceed with standing thoracolumbar A/P with TLSO tomorrow, after PT confirms he can stand safely. (2) Acute hypoxemic respiratory failure: Status: Resolved Assessment and plan: -iatrogenic, secondary to pain medications as noted above -currently requiring 1L oxymask to maintain O2 sat >92%, will wean as tolerated February 09: He continues to require NC1L, changed SpO2 expectation to 88-92% February 10: On room air, resolved. (3) Type 2 diabetes mellitus: Status: Acute Assessment and plan: -diet controlled (4) Hypercholesterolemia: Status: Acute Assessment and plan: -continue home statin (5) Hypertension: Status: Chronic Assessment and plan: -does not appear to be on any home medications (6) Urinary retention with incomplete bladder emptying: Status: Acute Assessment and plan: As likely BPH as neurological, reviewed with [facility] neurosurgery Continue tate for now Subjective Subjective Interval history since last seen: Mr. Moulton continues to have severe pain in his lower back, relieved with IV narcotics. He is tolerating PO, urinating and stooling appropriately. Exam Narrative Exam Narrative: General: This is a pleasant man in no distress HEENT: Normocephalic, atraumatic CV: RRR Resp: CTAB on room air Abd: soft, NTND MSK: voluntary motion x4 with normal tone Neuro: awake, alert, no focal deficits Objective Last Vital Signs Temp 36.8 C 02/11/25 14:55 Pulse 67 02/11/25 12:29 Resp 18 02/11/25 08:25 BP 115/78 02/11/25 12:29 Pulse Ox 95 02/10/25 23:27 Laboratory Results - last 24 hr 02/11/25 02:20 Urine Opiates Screen Positive A Urine Methadone Screen Negative Ur Barbiturates Screen Negative Ur Tricyclics Screen Negative Ur Amphetamines Screen Negative U Benzodiazepines Scrn Negative Urine Cocaine Screen Negative U Cannabinoids Screen Negative Time Spent with Patient Time Spent with Patient: >50 minutes Time was spent: preparing to see the patient(eg.review tests), obtaining and/or reviewing separately otained hiistory, ordering medications,tests, procedures, referring, communicating with other health technical healthcare consultant, indepentently interpreting results, counseling the patient and care coordination
[2025-02-11] MEDS: Ramelteon 8 MG TAB PO (19:13)
[2025-02-12] VITALS: BP 127/82; PULSE 90; RESP 18; TEMP 36.4; O2SAT 96
--- NOTE | 2025-02-12 | DI.RAD_ITS ---
Exam(s) XR THORACOLUMB JUNCT 2V EXAM: XR THORACOLUMB JUNCT 2V INDICATION: thoracolumbar trauma. COMPARISON: CT CT LUMBAR SPINE RECONS from 02/07/2025 MR MR LUMBAR SPINE WO from 02/10/2025 MR MR THORACIC SPINE WO from 02/10/2025 CR XR LUMBAR SPINE AP, LAT from 02/11/2025 TECHNIQUE: 2D digital imaging was performed. Three upright views were performed with a brace in place. FINDINGS: The AP views are somewhat limited by the brace positioned over the spine. No fracture is visible. There are flowing endplate osteophytes. Alignment appears normal.. IMPRESSION: No visible fracture. Degenerative changes flowing endplate osteophytes. DATA REPOSITORY: RADIATION DOSE DELIVERED:
[2025-02-12] MEDS: HYDROmorphone 2 MG/ML SYR 1 MG IVP ×4 (02:03→12:20)
[2025-02-12] MEDS: Normal Saline Flush 10 ML SYR IVP (02:04)
[2025-02-12] MEDS: Ibuprofen 800 MG TAB PO ×2 (02:05→20:00)
[2025-02-12] MEDS: Tamsulosin 0.4 MG CAPCR PO ×2 (08:29→20:00)
[2025-02-12] MEDS: Ferrous Sulfate 325 MG TAB PO (08:29)
[2025-02-12] MEDS: Cholecalciferol (Vitamin D3) 400 UNIT TAB PO (08:29)
[2025-02-12] MEDS: Ascorbic Acid 500 MG TAB 2000 MG PO ×3 (08:29→20:00)
[2025-02-12] MEDS: Pantoprazole 40 MG TABCR PO (08:30)
[2025-02-12] MEDS: Gabapentin 800 MG TAB 1600 MG PO ×3 (08:30→20:02)
--- NOTE | 2025-02-12 08:44 | PDOC.CMPRO ---
Date of service: 02/12/25 Time of Service: 08:44 Care Management Progress Note Progress Note Text Progress Note Text: Emery was lying in bed when CM met with him. He appeared to be uncomfortable and stated that his back was really hurting at that time. He informed CM that he had asked for pain medication and believed his nurse would bring it shortly. Emery was fitted with a TLSO brace. Per PT, he is having less pain while wearing the brace. Emery has been able to manage his pain with oral agents alone today. There is discussion about possible discharge tomorrow so transitioning to oral medication is stewart. CM asked Emery if he would be willing to accept home health services for PT but he declined. He stated that he does not feel he needs it and did not think his would support that plan either. Discharge Potential Discharge Needs: PCP F/U Appt Anticipated Barriers to Discharge: None Identified Patient/Family Education Needs: Review discharge instructions, discuss Ask Me Three Transportation: Private vehicle Plan: Emery will return home once medically cleared. His will transport via private vehicle and Emery will follow up with his PCP and discharge plan of care. CM will follow and continue to assess for discharge planning concerns.. Social Determinants of Health Screening Will the Patient Participate in the Screening?: Declined to provide
--- NOTE | 2025-02-12 10:41 | PTTR_ITS ---
PT Notes Visit Reasons: Back Pain Inpatient Physical Therapy Treatment Note [facility] Date: 02/12/2025 am session PRECAUTIONS:TLSO on when OOB, may be donned at EOB SUBJECTIVE: Pt reports he is feeling a little better as long as he has pain meds. OBJECTIVE: Pt presented semireclined in bed with the TLSO on PAIN:5/10 with meds VITALS: monitored by Nursing Therapeutic Activities ([id number][]): Direct one-on-one instruction in dynamic activities to improve functional performance. BED MOBILITY/TRANSFERS Rolling L/R: [] Supine-sit:with mod A of 1 and increased time Sit-supine: mod A of 1 for LEs and min A of 1 for trunk ; pt dependent of 2 to boost up in bed Sit-stand: min A of 1 Stand-sit: CGA of 1 Bed-Chair: CGA with FWW Chair-bed: CGA with FWW Provided skilled cues and instruction on performance and technique throughout. Orthotic management: TLSO fitting/ adjustment at EOB donning doffing with mod A to secure velcro appropriately and for proper alignment. ASSESSMENT: After 45degree flexion xrays reviewed by [facility] neurosurgery with MD recommended standing xray with TLSO on. Pt assessment for OOB with TLSO completed. Pt at CGA level for transfers , he requires min A for bed mobility d/t pain in right lateral trunk. In standing pt tolerated stand with walker x 88 sec with CGA , Pt able to side step with walker with CGA. Pt developed lightheadedness and sensation of weakness in his legs limiting his ability to tolerate further standing. Unable to assess BP at this time but will perform orthostatic next session if appropriate . PLAN: 1-2x/day, 7 days/week x 1 week. Plan of care has been reviewed with the TRAVELING PASSENGER AGENT providing the service under Physical Therapy direction. Initiate Physical Therapy intervention for strengthening, bed mobility, transfers, gait, stairs, balance training, use of assistive device. TREATMENT CODE/TIME: 6780-3298/ 23834,69643 DISCHARGE RECOMMENDATION: home with HHPT vs Short term PT
[2025-02-12] MEDS: traMADol 50 MG TAB PO ×3 (13:19→20:00)
--- NOTE | 2025-02-12 15:10 | PTTR_ITS ---
PT Notes Visit Reasons: Back Pain Inpatient Physical Therapy Treatment Note [facility] Date: 02/12/2025 PRECAUTIONS: Fall, Standard, WBAT, TLSO on when OOB ( may apply at EOB), pain SUBJECTIVE: Pt stated they were really cold, and didn’t want to walk because of the pain. However after encouragement from RN he was agreeable. When asked , Pt reports he sleeps in a lift assist recliner. He has a ramp to enter at one entrance and stairs at another. Pt also reports he has an FWW. OBJECTIVE: PAIN: Resting in bed 5/10 Low back radiating around right side along the ribs During ambulation 6/10 in Low back radiating around right side along the ribs VITALS: Monitored by Nursing Therapeutic Activities ([id number][]): Direct one-on-one instruction in dynamic activities to improve functional performance. BED MOBILITY/TRANSFERS Rolling L/R: Min A of 1 Supine-sit: Min A of 2 Sit-supine: Min A of 2 Sit-stand: Min A of 1 Stand-sit: CGA of 1 Ambulation 23 feet x2 with FWW CGA of 1 and SBA of 1 following with a wheelchair with elevated seat. Provided skilled cues and instruction on performance and technique throughout. Orthotic management: dependent for TLSO proper donning and doffing at Bedside, Adjustment made to shoulder straps and cinching straps, TEST DESK TROUBLE LOCATOR observed doffing at EOB. ASSESSMENT: Pt was able to move from supine to EOB with Min A of 2. PT then put a robe and TLSO on the pt to cover exposed areas, and to provide support to the pt. Pt was then able to sit to stand with Min A of 1. Pt provided verbal cueing for proper hand placement. Pt was then able to ambulate 23 feet. Pt notice pt was having some pain, and their benito decreased. PT had the pt sit down and rest before ambulating again. Pt then ambulated back to bed. Pt continues to have a great deal of pain, which inhibits his activity tolerance, standing/dynamic balance, and bed mobility. At this time, pt requires assistance to don doff TLSO. Pt would benefit from skilled physical therapy to keep the patient moving and help increase activity tolerance as pain decreases over time. PLAN: 1-2x/day, 7 days/week x 1 week. Plan of care has been reviewed with the ACQUISITION ASSOCIATE providing the service under Physical Therapy direction. Initiate Physical Therapy intervention for pain management as needed, strengthening, bed mobility, transfers, gait, balance training, and use of assistive device TREATMENT CODE/TIME: 80380, 95158/1:08-1:56 for a total of 46 minutes DISCHARGE RECOMMENDATION: Home with Outpatient PT Written by Shimon Bernal DPTS Supervised by Sho Rowland PT
--- NOTE | 2025-02-12 16:18 | PGE_ITS ---
Date of Service Date of service: 02/12/25 Time of Service: 08:00 Assessment and Plan Assessment and plan (1) Acute back pain: Status: Acute Assessment and plan: -back pain after patient experienced a fall at home while working -Trauma surgery recommended MRI thoracic and lumbar spine, however, MRI not available until Monday -once patient has MRI, recommendation is that if it is negative plan is to get x-ray for flexion and extension and then to reconsult Neurosurgery -patient had total of 10mg of morphine in the ED follow by 4mg IV dilaudid upon arrival to the ICU and is somnolent this AM -PRN IV dilaudid decreased to 1mg Q4hr February 09: no changes in management, continue PRN narcotics. MRI tomorrow, then re-consult [facility] neurosurgery. Continue enoxaparin for VTE ppx. February 10: reviewed MRI results with Dr Spicer. Hematoma anterior to L1, other deficits appear chronic. Spoke with [facility] neurosurgery PA, awaiting NSGY review. Likely TLSO and PT/OT. February 11: per [facility] neurosurgery advice, XR lumbar spine 45 degree in bed with TLSO on, sent images to [facility] for discussion. Will proceed with standing thoracolumbar A/P with TLSO tomorrow, after PT confirms he can stand safely. February 12: cleared to stand by PT, completed thoracolumbar A/P with TLSO. Reviewed with [facility] NSGY resident. Can continue working with PT. TLSO to be in place except when he is in bed. [facility] NSGY followup in 4 weeks. Pain management transitioning to PO narcotics. (2) Acute hypoxemic respiratory failure: Status: Resolved Assessment and plan: -iatrogenic, secondary to pain medications as noted above -currently requiring 1L oxymask to maintain O2 sat >92%, will wean as tolerated February 09: He continues to require NC1L, changed SpO2 expectation to 88-92% February 10: On room air, resolved. (3) Type 2 diabetes mellitus: Status: Acute Assessment and plan: -diet controlled (4) Hypercholesterolemia: Status: Acute Assessment and plan: -continue home statin (5) Hypertension: Status: Chronic Assessment and plan: -does not appear to be on any home medications (6) Urinary retention with incomplete bladder emptying: Status: Acute Assessment and plan: As likely BPH as neurological, reviewed with [facility] neurosurgery Removed tate Subjective Subjective Interval history since last seen: Mr. Moulton has improved back pain with TLSO brace. Transitioning to PO narcotics. Cleared for ambulation by [facility] Exam Narrative Exam Narrative: General: This is a pleasant man in no distress HEENT: Normocephalic, atraumatic CV: RRR Resp: CTAB on room air Abd: soft, NTND MSK: voluntary motion x4 with normal tone Neuro: awake, alert, no focal deficits Objective Last Vital Signs Temp 36.4 C L 02/12/25 00:00 Pulse 90 02/12/25 00:00 Resp 18 02/12/25 00:00 BP 127/82 02/12/25 00:00 Pulse Ox 96 02/12/25 00:00 Time Spent with Patient Time Spent with Patient: 25-34 minutes Time was spent: preparing to see the patient(eg.review tests), obtaining and/or reviewing separately otained hiistory, ordering medications,tests, procedures, referring, communicating with other health career and transition teacher, indepentently interpreting results, counseling the patient and care coordination
[2025-02-12] MEDS: oxyCODONE 5 MG/5 ML CUP 10 MG PO ×2 (17:10→22:04)
[2025-02-12 19:45] VITALS: TEMP 37.2
[2025-02-12] MEDS: Ramelteon 8 MG TAB PO (20:00)
[2025-02-12 20:11] VITALS: BP 148/69; PULSE 96
[2025-02-12] MEDS: Enoxaparin 40 MG/0.4 ML SYR SC ×2 (23:15)
[2025-02-13] MEDS: Acetaminophen 325 MG TAB PO (03:02)
[2025-02-13] MEDS: traMADol 50 MG TAB PO (03:03)
[2025-02-13] MEDS: oxyCODONE 5 MG/5 ML CUP 10 MG PO ×2 (04:33→09:23)
[2025-02-13] MEDS: Ibuprofen 800 MG TAB PO (04:33)
[2025-02-13 04:43] VITALS: TEMP 36.2
[2025-02-13 05:42] VITALS: BP 105/60; PULSE 62; O2SAT 94
[2025-02-13 05:44] VITALS: BP 105/60; PULSE 89; RESP 18; O2SAT 94
--- NOTE | 2025-02-13 08:06 | PDOC.CMPRO ---
Date of service: 02/13/25 Time of Service: 08:06 Care Management Progress Note Discharge Potential Discharge Needs: PCP F/U Appt Anticipated Barriers to Discharge: None Identified Patient/Family Education Needs: Review discharge instructions, discuss Ask Me Three Transportation: Private vehicle Plan: Emery will return home once medically cleared. His will transport via private vehicle and Emery will follow up with his PCP and discharge plan of care. CM will follow and continue to assess for discharge planning concerns.. Social Determinants of Health Screening Will the Patient Participate in the Screening?: Declined to provide
--- NOTE | 2025-02-13 08:07 | PDOC.CMDIS ---
Date of service: 02/13/25 Time of Service: 08:07 LACE Index Scoring Tool Questions: Length of Stay (in days): 4 - 6 Was the patient admitted via the E.D.?: Yes Comorbidities: Diabetes w/o Complication E.D. Visits: 1 Answers: Total Score: 9 Risk of Readmission: Low Risk Care Management Discharge Plan Reason for Hospitalization: hyperglycemia Discharge Plan: Emery will be discharged home with no new services. He will follow up with his community providers and discharge plan of care and will transport via private vehicle with his . Patient/Family Education Needs: Review discharge instructions, discuss Ask Me Three
--- NOTE | 2025-02-13 08:38 | W.NUTRFU ---
Date of service: 02/13/25 Time of Service: 08:38 Nutrition Note NOTE: PT chart reviewed -
[2025-02-13] MEDS: Cholecalciferol (Vitamin D3) 400 UNIT TAB PO (09:08)
[2025-02-13] MEDS: Ascorbic Acid 500 MG TAB 2000 MG PO (09:08)
[2025-02-13] MEDS: Gabapentin 800 MG TAB 1600 MG PO (09:09)
[2025-02-13] MEDS: Ferrous Sulfate 325 MG TAB PO (09:09)
[2025-02-13] MEDS: Tamsulosin 0.4 MG CAPCR PO (09:10)
[2025-02-13] MEDS: Pantoprazole 40 MG TABCR PO (09:10)
[2025-02-13 10:45] VITALS: PULSE 88; O2SAT 91
[2025-02-13 10:48] VITALS: BP 110/85; PULSE 84; O2SAT 93
[2025-02-13 10:50] VITALS: BP 102/71; BP 110/85; PULSE 87; PULSE 91; PULSE 92
--- NOTE | 2025-02-13 11:51 | PTTR_ITS ---
Date of service: 02/13/25 PT Notes Visit Reasons: Back Pain Inpatient Physical Therapy Treatment Note Date: 02/13/2025 PRECAUTIONS: Fall, Standard, WBAT, TLSO on when OOB ( may apply at EOB), pain SUBJECTIVE: Pt reporting his back is very itchy. ( pt's back was examined with no open areas or redness. Noted indentations to back from wrinkles in gown. Pt's back was cleansed at bedside prior to TLSO being donned.) OBJECTIVE: Pt presented supine in bed on his phone. PAIN: Resting in bed 3/10 Low back radiating around right side along the ribs During ambulation 3/10 in Low back radiating around right side along the ribs VITALS: BP seated 110/85 HR 92 BP standing 102/71 HR 96 Therapeutic Activities ([id number][]): Direct one-on-one instruction in dynamic activities to improve functional performance. BED MOBILITY/TRANSFERS Rolling L/R: CGA with cues to log roll with B knee flexion Supine-sit:CGA with HOB at 25 degrees Sit-supine: NT Sit-stand: SBA from bed, chair at 18 height and wheelchair Stand-sit:SBA at bed and chairx2 trials Ambulation 120 feet with 2 stand rests with FWW SBA of 1 reciprocal pattern forward flexed trunk increased WB through BUE Provided skilled cues and instruction on performance and technique throughout. Orthotic management: dependent for TLSO proper donning and doffing at Bedside, Adjustment made to shoulder straps and cinching straps, Pt required assistance to get brace around his back and to secure the velcro around abdomen. He was able to independently pull the cords to cinch/tighten the TLSO around his abdomen. TLSO adjusted again in stand position to ensure proper positioning. PM Session: Pt demonstrates ability to don the TLSO with cues . He was able to adjust the TLSO once he was in standing to ensure proper fit. ASSESSMENT: Pt with improved OOB activity tolerance as evidenced by increased distance of ambulation and ability to sit in stationary chair at the end of the session. Pt demonstrated improved foot clearance/ step height during ambulation. Pt with no visible s/s of increased pain with functional tasks this session. He again denied radiating pain down legs with pain localized to right lateral trunk. PM session pt able to don TLSO appropriately after verbal instruction. Pt to be discharged to home this pm. PLAN: 1-2x/day, 7 days/week x 1 week. Plan of care has been reviewed with the INFORMATION RESOURCES DIRECTOR providing the service under Physical Therapy direction. Initiate Physical Therapy intervention for pain management as needed, strengthening, bed mobility, transfers, gait, balance training, and use of assistive device TREATMENT CODE/TIME: 27920, 31109/[id number] PM session: 44252/ [id number] DISCHARGE RECOMMENDATION: Home with HHPT however pt declines services. Sho Rowland, PT [facility]
--- NOTE | 2025-02-13 11:52 | DSE_ITS ---
Date of service: 02/13/25 Time of Service: 08:00 DS: Diagnosis Discharge Diagnosis (1) Acute back pain: Status: Resolved Asessment and Plan: -back pain after patient experienced a fall at home while working -Trauma surgery recommended MRI thoracic and lumbar spine, however, MRI not available until Monday -once patient has MRI, recommendation is that if it is negative plan is to get x-ray for flexion and extension and then to reconsult Neurosurgery -patient had total of 10mg of morphine in the ED follow by 4mg IV dilaudid upon arrival to the ICU and is somnolent this AM-PRN IV dilaudid decreased to 1mg Q4hr February 09: no changes in management, continue PRN narcotics. MRI tomorrow, then re-consult [facility] neurosurgery. Continue enoxaparin for VTE ppx. February 10: reviewed MRI results with Dr Spicer. Hematoma anterior to L1, other deficits appear chronic. Spoke with [facility] neurosurgery PA, awaiting NSGY review. Likely TLSO and PT/OT. February 11: per [facility] neurosurgery advice, XR lumbar spine 45 degree in bed with TLSO on, sent images to [facility] for discussion. Will proceed with standing thoracolumbar A/P with TLSO tomorrow, after PT confirms he can stand safely. February 12: cleared to stand by PT, completed thoracolumbar A/P with TLSO. Reviewed with [facility] NSGY resident. Can continue working with PT. TLSO to be in place except when he is in bed. [facility] NSGY followup in 4 weeks. Pain management transitioning to PO narcotics. (2) Acute hypoxemic respiratory failure: Status: Resolved Asessment and Plan: Secondary to narcotics, resolved (3) Type 2 diabetes mellitus: Status: Chronic Asessment and Plan: Diet controlled (4) Hypercholesterolemia: Status: Chronic Asessment and Plan: Continue home regimen (5) Hypertension: Status: Chronic Asessment and Plan: Continue home regimen (6) Urinary retention with incomplete bladder emptying: Status: Chronic Asessment and Plan: Started on tamsulosin Discharge Plan Disposition Patient Disposition: Home Condition: Improving Discharge Details Reason For Visit: Back Pain Admit Date/Time: 02/07/25 22:33 Admit Provider: Bryan Lamb Attending Provider: Bryan Lamb Primary Care Provider: Paty,Jennifer Hospital Course Hospital Course: Emery Moulton is a 69 year old man presenting February 07 after falling and injuring his back. [facility] neurosurgery was consulted and advised MRI and re-consultation. He had delayed MRI on hospital day 3 which showed numerous chronic deficits as well as a new anterior hematoma around L1. At the direction of [facility] neurosurgery, he was started with a TLSO brace. He had 45 degree flexion XR which did not show misalignment. He was cleared by PT to stand for thoracolumbar series, which also did not show misalignment. [facility] will coordinate 4 week followup appointment. Mr. Moulton has significant pain and will be given a limited supply of narcotics for use at home. Home Meds and New Rx's Prescriptions: New sennosides [Senokot] 8.6 mg Tablet 8.6 mg PO BID Qty: 60 0RF tamsulosin 0.4 mg Capsule 0.4 mg PO HS Qty: 30 0RF oxycodone 5 mg/5 mL Solution 10 mg PO Q6H PRN PRNQty: 300 0RF methocarbamol 750 mg Tablet 1,500 mg PO QID PRN PRNQty: 30 0RF Continued cyclobenzaprine 10 mg tablet 10 mg PO HS ferrous gluconate 256 mg (28 mg iron) tablet 256 mg PO DAILY gabapentin 800 mg tablet 1,600 mg PO TID Patient Comments: Pt states he takes 1600 mg three times daily - Ellie Sanford RN 02/07/25 tadalafil 10 mg tablet 10 mg PO DAILY PRN Rx Instructions: administer approximately 30min before sexual activity; do not use more than 1 dose per 24hrs ramelteon 8 mg tablet 8 mg PO QHS Discontinued ascorbic acid (vitamin C) 1,000 mg tablet 2 g PO TID cholecalciferol (vitamin D3) 10 mcg (400 unit) capsule 10 mcg PO DAILY Discharge Instructions Additional Instructions: Confirm followup with [facility] Neurosurgery Stand Alone Forms: Portal Information Referrals: [facility] [Provider Group, Physical Therapy] Referral Note: Hospitalized Feb 07-. Continue physical therapy for thoracolumbar injury. TLSO. Problems: Acute back pain Activity:: Activity as Tolerated Equipment/Supplies:: TLSO Diet:: As Tolerated Discharge Orders Discharge Orders: Discharge Order (Routine); Ordered 02/13/25 Ordered By: Yonas Zimmerman Discharge Data Discharge Date/Time-TO BE ENTERED AT DEPARTURE: 02/13/25 13:14 DS: Summary Time Spent with Patient providing and/or coordinating discharge services: Greater than 30 minutes Status at Discharge Functional status at discharge: independent ambulation Overall status at discharge: patient is back to baseline Mental Status: mental status grossly normal Speech and Movement: speech and movement normal Mood: congruent mood Affect: normal affect Exam Narrative Exam Narrative: General: This is a pleasant man in no distress HEENT: Normocephalic, atraumatic CV: RRR Resp: CTAB on room air Abd: soft, NTND MSK: voluntary motion x4 with normal tone Neuro: awake, alert, no focal deficits Psych Mental Status: mental status grossly normal Speech and Movement: speech and movement normal Mood: congruent mood Affect: normal affect DS: Data Vitals/I&O Vitals and I&O: Vital Signs Temperature 36.2 C L 02/13/25 04:43 Temperature Source Temporal Artery Scan 02/13/25 04:43 Pulse 87 02/13/25 10:50 Pulse 69 02/10/25 10:00 Respiratory Rate 18 02/13/25 05:44 Respiratory Effort Normal 02/07/25 23:45 Respiratory Depth Normal 02/07/25 23:45 Respiratory Pattern Tachypnea 02/07/25 23:45 Blood Pressure 110/85 02/13/25 10:50 Blood Pressure Mean 75 02/13/25 05:44 Blood Pressure Position Supine 02/07/25 16:17 Pulse Oximetry 94 02/13/25 05:44 Oxygen Delivery Method Room Air 02/13/25 05:44 Oxygen Flow Rate 0 02/13/25 05:44 Pain Level 8 02/13/25 09:23 Intake & Output 02/12/25 02/12/25 02/13/25 11:59 23:59 11:59 Intake Total 300 / 532 232 / 532 915 / 915 Output Total 1550 / 4825 3275 / 4825 1350 / 1350 Balance -1250 / -4293 -3043 / -4293 -435 / -435 Weight 125.8 kg 125.2 kg Intake: IV 0 Oral 300 / 522 222 / 522 915 / 915 Output: Urine 1550 / 4825 3275 / 4825 1350 / 1350 Other: Urine Color Yellow Yellow Yellow Urine Appearance Clear Cloudy Clear Comment 1275mL urine drained from tate bag with strong to foul odor. Data Completed and Pending Pending Labs at Discharge: 02/07/25 02/07/25 02/10/25 13:28 13:48 05:40 WBC 8.21 RBC 4.55 Hgb 15.2 Hct 46.3 MCV 102 H MCH 33.4 H MCHC 32.8 RDW 12.9 Plt Count 263 MPV 9.0 Immature Gran % 1.0 Neutrophils % 78.0 Lymphocytes % 13.0 Monocytes % 6.1 Eosinophils % 1.5 Basophils % 0.4 Nucleated RBC % 0.0 Absolute Neutrophils 6.41 Absolute Lymphocytes 1.07 L Absolute Monocytes 0.50 Absolute Eosinophils 0.12 Absolute Basophils 0.03 Sodium 140 140 Potassium 3.8 4.0 Chloride 103 104 Carbon Dioxide 28.1 27.5 Anion Gap 8.9 8.5 BUN 17 15 Creatinine 0.7 0.6 L Est GFR (CKD-EPI 2020) 99.74 104.49 Glucose 128 H 131 H Calcium 8.6 8.1 L Total Bilirubin 0.5 AST 38 H ALT 35 Alkaline Phosphatase 119 H Total Protein 7.6 Albumin 4.2 Lipase 35 Urine Opiates Screen Urine Methadone Screen Ur Barbiturates Screen Ur Tricyclics Screen Ur Amphetamines Screen U Benzodiazepines Scrn Urine Cocaine Screen U Cannabinoids Screen ABO/Rh AB Negative Antibody Screen NEGATIVE 02/11/25 02:20 WBC RBC Hgb Hct MCV MCH MCHC RDW Plt Count MPV Immature Gran % Neutrophils % Lymphocytes % Monocytes % Eosinophils % Basophils % Nucleated RBC % Absolute Neutrophils Absolute Lymphocytes Absolute Monocytes Absolute Eosinophils Absolute Basophils Sodium Potassium Chloride Carbon Dioxide Anion Gap BUN Creatinine Est GFR (CKD-EPI 2020) Glucose Calcium Total Bilirubin AST ALT Alkaline Phosphatase Total Protein Albumin Lipase Urine Opiates Screen Positive A Urine Methadone Screen Negative Ur Barbiturates Screen Negative Ur Tricyclics Screen Negative Ur Amphetamines Screen Negative U Benzodiazepines Scrn Negative Urine Cocaine Screen Negative U Cannabinoids Screen Negative ABO/Rh Antibody Screen PFSH All Active Problems (Updated 02/15/25 @ 21:34 by Yonas Zimmerman MD) Urinary retention with incomplete bladder emptying (Chronic) Fracture of lumbar spine (Acute) Neuropathy due to type 2 diabetes mellitus (Acute) Retinopathy due to secondary diabetes mellitus (Acute) Type 2 diabetes mellitus (Chronic) Atherosclerosis of coronary artery without angina pectoris (Acute) Low back pain (Acute) Postgastric surgery syndrome (Acute) Peripheral venous insufficiency (Acute) Hypertension (Chronic) Erectile dysfunction (Acute) Obesity (Chronic) Hypercholesterolemia (Chronic) Medical History (Updated 02/15/25 @ 21:34 by Yonas Zimmerman MD) Elevated MCV History of fracture of right hip History of pancreatitis Surgical History (Updated 01/24/24 @ 10:29 by Helen Kapoor RN) History of arthroplasty of finger of left hand History of vasectomy History of carpal tunnel release Hx of cholecystectomy History of bariatric surgery Social History Smoking/Tobacco Use Status: Never Smoking risk assessment performed?: Yes Alcohol Intake: current Alcohol Intake frequency: holidays/special occasions only Drug use: Never Substance use type: does not use Housing: house Do you feel safe at home: Yes Do you feel safe in your relationship?: Yes Time Spent with Patient Time Spent with Patient: 45-69 minutes Time was spent: preparing to see the patient(eg.review tests), obtaining and/or reviewing separately otained hiistory, ordering medications,tests, procedures, referring, communicating with other health rn urgent care, indepentently interpreting results, counseling the patient and care coordination
== END 2025-02-13 13:14 | disposition home or self-care (01) | DRG 52 ==
LOC: ER 19:47 → ICU 02-08 06:53
PROVIDERS: Family Medicine; Physician Assistant; Admitting Provider Hospitalist; Emergency Provider Physician Assistant; PCP Family Medicine; Responsible Provider Family Medicine; Visit Provider Hospitalist
DX: S34.101A Unspecified injury to L1 level of lumbar spinal cord, initial encounter (principal); J96.01 Acute respiratory failure with hypoxia; G89.11 Acute pain due to trauma; M54.9 Dorsalgia, unspecified; E11.40 Type 2 diabetes mellitus with diabetic neuropathy, unspecified; E78.00 Pure hypercholesterolemia, unspecified; I10 Essential (primary) hypertension; R33.9 Retention of urine, unspecified; Z96.643 Presence of artificial hip joint, bilateral; Z96.612 Presence of left artificial shoulder joint; E11.319 Type 2 diabetes mellitus with unspecified diabetic retinopathy without macular edema; I25.10 Atherosclerotic heart disease of native coronary artery without angina pectoris; I87.2 Venous insufficiency (chronic) (peripheral); E66.9 Obesity, unspecified; Z68.37 Body mass index [BMI] 37.0-37.9, adult; Z98.84 Bariatric surgery status; W10.8XXA Fall (on) (from) other stairs and steps, initial encounter; T40.2X5A Adverse effect of other opioids, initial encounter
CPT/HCPCS: 00123; 36415; 73562; 80048; 80053; 80307; 83690; 86850; 86900; 86901; 96365; 96375; 96376; 97162; 97530; 97763; 99285; J1650; 70450; 72080; 72100; 72146; 72148; 73590; 74177; 85025; 94760; 99223; 99232; 99233; 99239; G0378; J0131; J1171; J2270; J3490